=== PATIENT | male | born 1945 | race Caucasian/White ===

== ENCOUNTER → 2024-02-22 12:17 | Outpatient (REF) | payer MEDICARE, OTHER, SELFPAY ==
[2024-02-22 16:33] LABS: PSA, Total - Diagnostic 7.75 ng/ml (0.0-4.0)
== END ==
LOC: HWLAB 12:17
PROVIDERS: ATTENDING PHYSICIAN Specialist; FAMILY PHYSICIAN Family Medicine
DX: R97.20 Elevated prostate specific antigen [PSA] (principal)
CPT/HCPCS: 36415; 84153

== ENCOUNTER 2024-03-19 18:13 | Inpatient (IN) | payer MEDICARE, OTHER, SELFPAY ==
[2024-03-19 11:32] VITALS: BP 116/76
--- NOTE | 2024-03-19 11:41 | ED.GENMED ---
ED Provider Triage
<Dyan Silver PA-C - Last Filed: 03/19/24 11:42>
-
Patient seen by provider in Triage?: Seen in Triage
78-year-old male with a history of remote cholecystectomy presents for 5 days of pain with eating especially in the right upper quadrant, itchiness, yellowing of the skin. Outpatient family physician ordered belly labs and showed transaminitis. He
has not had a history of hepatitis. He does drink alcohol occasionally.
A medical screening examination has been initiated by a qualified medical provider. Based on the assessment performed at this time, it has been determined that an emergent medical condition may exist and the patient has been informed that further
medical evaluation and possible additional diagnostic testing may be needed.
HPI: This is a medical evaluation conducted in person to initiate diagnostic evaluation and provide initial therapeutics. Please see further documentation by the treating clinician.
GENERAL: Alert , in no apparent distress
ENT: No visible abnormalities
LUNGS: No acute respiratory distress
NEUROLOGICAL: Alert and oriented
SKIN: Skin intact. No visible changes.
MUSCULOSKELETAL: Moving extremities normally
PSYCH: Normal and appropriate interaction.
Will repeat labs as well as get a hepatitis panel and ultrasound
History of Present Illness
<Dyan Silver PA-C - Last Filed: 03/19/24 11:42>
General
Chief Complaint: Abnormal Lab Value
Time Seen by Provider: 03/19/24 14:14
<Margaux Ruiz PA-C - Last Filed: 03/19/24 19:11>
General
Source: patient
History of Present Illness
History of Present Illness:
78yoM with a history of hypertension and prior cholecystectomy presenting for evaluation of generalized weakness. Symptoms began about 5 to 6 days ago. He reports feeling very fatigued and nauseous. He reports upper abdominal pain after eating.
He has also noticed that his urine appears dark and he is having diffuse itchiness. No fevers. Patient was seen by his PCP 2 days ago for the same and was started on Cipro for presumed UTI. He was sent for outpatient blood work which showed
transaminitis and he was sent to the ED for evaluation. Patient drinks alcohol only on weekends. He had 1 beer a few days ago but denies any regular alcohol use. He has taken Tylenol twice in the past few days.
Past History
<Dyan Silver PA-C - Last Filed: 03/19/24 11:42>
Past History
ED Past Medical History: HTN and Other (migraines); Negative CAD
Social History
Tobacco: Non-smoker
Personal:
Living: with family
Employment: Retired
Phy Exam
<Margaux Ruiz PA-C - Last Filed: 03/19/24 19:11>
Physical Exam
Physical Exam:
Fatigued, non-toxic
General Physical Exam
General Presentation: no apparent distress
General Skin: warm and dry
General Mental: alert
ENT Exam
ENT Exam: normocephalic
Pulmonary Exam
Pulmonary Exam: no respiratory distress
Gastrointestinal Exam
Gastrointestinal Exam: non tender, soft and non distended
Neurological Exam
Neurological Exam: alert
[place] Coma Scale
Eye Opening: Spontaneous
Verbal Response: Oriented
Motor Response: Obeys Commands
GCS Total Score: 15
Skin Exam
Skin Exam: warm/dry and jaundice
Psychiatric Exam
Psychiatric Exam: normal mood/affect
Course
<Dyan Silver PA-C - Last Filed: 03/19/24 11:42>
Orders/Labs/Results
Orders:
Orders
03/19/24 11:38
US Abdomen Complete/Upper Urgent
Comment:
Reason For Exam: elevated liver enzymes
03/19/24 11:43
Complete Blood Count/With Diff Urgent
Comprehensive Metabolic Panel Urgent
Hepatitis A IgM Antibody Urgent
Hepatitis B Core Ab, IgM Urgent
Hepatitis B Surface Antibody Urgent
Hepatitis B Surface Antigen Urgent
Hepatitis C Antibody Urgent
LFT [[id number]-[id number]] Urgent
Lipase Urgent
Urinalysis Reflex To Culture Urgent
Date Specimen was Collected: 03/19/24
Time Specimen was Collected: 11:36
Urine Microscopic Reflex Cult Urgent
Urine Culture Urgent
RONALDO Source: U
Specimen Description:
Date Specimen was Collected: 03/19/24
Time Specimen was Collected: 11:36
03/19/24 14:23
CT Abd/pelvis W Iv Cont Urgent
Comment:
Reason For Exam: New onset jaundice
03/19/24 15:35
PTT Urgent
Prothrombin Time Urgent
03/19/24 16:39
GASTROINTESTINAL CONSULT Routine
Consulting Provider: Marian Rogers
Was physician already notified: Yes
03/19/24 16:58
HydrOXYZINE [Atarax] 25 mg PO NOW STA
03/19/24 17:35
Admit/Transfer Patient As Directed
Co-Sign Provider:
Level of Care: Inpatient admission
Assign to:: Medical/Surgical
Physician / Group: Pina Olmstead
Diagnosis: Jaundice, pancreatitis, moderate diffuse prominence of biliary ducts
Reason for Hospitalization: Jaundice, pancreatitis, moderate diffuse prominence of biliary ducts
Expected length of stay greater than two midnights?: Yes
ELOS- Estimated Length of Stay in days: 3
I certify the patient meets the requirements for IP care: Yes
PRN Pain Medication Management As Directed
May give lesser potent ordered pain med per pt: Yes
preference::
Protocol:: Medication orders for pain may be administered in a
manner that supports deferring to patient preference
when the pt is:
- Requesting an ordered lesser potent pain medication.
Least to most potent pain medications are defined
as: acetaminophen < NSAID < tramadol < opioids
(morphine, oxycodone, hydromorphone).
- Requesting a lesser dose of the same medication IF
ORDERED.
- Requesting a less intrusive route of administration
if both routes are prescribed by the provider (PO <
IV).
03/19/24 17:37
Code Status As Directed
Resuscitation Status: Do not resuscitate
Reached after discussion with pt or family/Healthcare POA: Yes
Decision communicated with: patient
03/19/24 17:38
DNR Bracelet Application ONCE
Abnormal Lab Results
03/19/24
11:43
RBC 4.68 L 10^6/uL
(4.70-6.10)
MCH 31.8 H pg
(27.0-31.0)
MPV 11.4 H fL
(7.4-10.4)
Absolute Lymphs (auto) 1.0 L 10^3/uL
(1.2-3.4)
Absolute Monos (auto) 0.7 H 10^3/uL
(0.1-0.6)
Lymphocytes % 17.2 L %
(20.5-51.1)
Monocytes % 11.5 H %
(1.7-9.3)
Carbon Dioxide 20 L mmol/L
(22-30)
Glucose 151 H mg/dl
(70-99)
Total Bilirubin 11.3 H mg/dl
(0.2-1.3)
Direct Bilirubin 9.6 H mg/dl
(0.0-0.4)
AST 351 H U/L
(17-59)
ALT 857 H* U/L
(0-50)
Alkaline Phosphatase 190 H U/L
(38-126)
Lipase 18 L U/L
(23-300)
Urine Ketones 1+ A
(Negative)
Urine Nitrite (Reflex) Positive A
(Negative)
Urine Bilirubin 3+ A
(Negative)
Urine Urobilinogen 3+ A
(Neg - 1+)
Leukocyte Esterase Rfl 1+ A
(Negative)
Urine Bacteria (Reflex) Moderate A
(Negative)
03/19/24 11:43
03/19/24 11:43
Vital Signs
Initial and Last Documented VS:
Initial Vital Signs
Temp Pulse Resp BP Pulse Ox
97.5 F 69 19 116/76 98
03/19/24 11:32 03/19/24 11:32 03/19/24 11:32 03/19/24 11:32 03/19/24 11:32
Last Documented Vital Signs
Temp Pulse Resp BP Pulse Ox
97.5 F 77 16 146/88 97
03/19/24 11:32 03/19/24 18:00 03/19/24 18:00 03/19/24 18:00 03/19/24 18:00
Geoffreylt;Margaux Ruiz PA-C - Last Filed: 03/19/24 19:11>
Orders/Labs/Results
Orders:
Orders
03/19/24 11:38
US Abdomen Complete/Upper Urgent
Comment:
Reason For Exam: elevated liver enzymes
03/19/24 11:43
Complete Blood Count/With Diff Urgent
Comprehensive Metabolic Panel Urgent
Hepatitis A IgM Antibody Urgent
Hepatitis B Core Ab, IgM Urgent
Hepatitis B Surface Antibody Urgent
Hepatitis B Surface Antigen Urgent
Hepatitis C Antibody Urgent
LFT [[id number]] Urgent
Lipase Urgent
Urinalysis Reflex To Culture Urgent
Date Specimen was Collected: 03/19/24
Time Specimen was Collected: 11:36
Urine Microscopic Reflex Cult Urgent
Urine Culture Urgent
RONALDO Source: U
Specimen Description:
Date Specimen was Collected: 03/19/24
Time Specimen was Collected: 11:36
03/19/24 14:23
CT Abd/pelvis W Iv Cont Urgent
Comment:
Reason For Exam: New onset jaundice
03/19/24 15:35
PTT Urgent
Prothrombin Time Urgent
03/19/24 16:39
GASTROINTESTINAL CONSULT Routine
Consulting Provider: Marian Rogers
Was physician already notified: Yes
03/19/24 16:58
HydrOXYZINE [Atarax] 25 mg PO NOW STA
03/19/24 17:35
Admit/Transfer Patient As Directed
Co-Sign Provider:
Level of Care: Inpatient admission
Assign to:: Medical/Surgical
Physician / Group: Pina Olmstead
Diagnosis: Jaundice, pancreatitis, moderate diffuse prominence of biliary ducts
Reason for Hospitalization: Jaundice, pancreatitis, moderate diffuse prominence of biliary ducts
Expected length of stay greater than two midnights?: Yes
ELOS- Estimated Length of Stay in days: 3
I certify the patient meets the requirements for IP care: Yes
PRN Pain Medication Management As Directed
May give lesser potent ordered pain med per pt: Yes
preference::
Protocol:: Medication orders for pain may be administered in a
manner that supports deferring to patient preference
when the pt is:
- Requesting an ordered lesser potent pain medication.
Least to most potent pain medications are defined
as: acetaminophen < NSAID < tramadol < opioids
(morphine, oxycodone, hydromorphone).
- Requesting a lesser dose of the same medication IF
ORDERED.
- Requesting a less intrusive route of administration
if both routes are prescribed by the provider (PO <
IV).
03/19/24 17:37
Code Status As Directed
Resuscitation Status: Do not resuscitate
Reached after discussion with pt or family/Healthcare POA: Yes
Decision communicated with: patient
03/19/24 17:38
DNR Bracelet Application ONCE
Abnormal Lab Results
03/19/24
11:43
RBC 4.68 L 10^6/uL
(4.70-6.10)
MCH 31.8 H pg
(27.0-31.0)
MPV 11.4 H fL
(7.4-10.4)
Absolute Lymphs (auto) 1.0 L 10^3/uL
(1.2-3.4)
Absolute Monos (auto) 0.7 H 10^3/uL
(0.1-0.6)
Lymphocytes % 17.2 L %
(20.5-51.1)
Monocytes % 11.5 H %
(1.7-9.3)
Carbon Dioxide 20 L mmol/L
(22-30)
Glucose 151 H mg/dl
(70-99)
Total Bilirubin 11.3 H mg/dl
(0.2-1.3)
Direct Bilirubin 9.6 H mg/dl
(0.0-0.4)
AST 351 H U/L
(17-59)
ALT 857 H* U/L
(0-50)
Alkaline Phosphatase 190 H U/L
(38-126)
Lipase 18 L U/L
(23-300)
Urine Ketones 1+ A
(Negative)
Urine Nitrite (Reflex) Positive A
(Negative)
Urine Bilirubin 3+ A
(Negative)
Urine Urobilinogen 3+ A
(Neg - 1+)
Leukocyte Esterase Rfl 1+ A
(Negative)
Urine Bacteria (Reflex) Moderate A
(Negative)
12/11/24 11:43
03/19/24 11:43
Vital Signs
Initial and Last Documented VS:
Initial Vital Signs
Temp Pulse Resp BP Pulse Ox
97.5 F 69 19 116/76 98
03/19/24 11:32 12 11:32 03/19/24 11:32 03/19/24 11:32 03/19/24 11:32
Last Documented Vital Signs
Temp Pulse Resp BP Pulse Ox
97.5 F 77 16 146/88 97
03/19/24 11:32 03/19/24 18:00 03/19/24 18:00 03/19/24 18:00 03/19/24 18:00
<Margaux Ruiz PA-C - Last Filed: 03/19/24 19:11>
MDM/Problems Addressed
Differential Diagnosis Includes:
78yoM here with postprandial abd pain, dark urine, itching, and generalized weakness x 5 days. Outpatient blood work showed transaminitis. VSS. He appears fatigued on exam although is non-toxic. Jaundice noted. Abdominal exam is benign. Differential
diagnosis includes but is not limited to: hepatitis, malignancy, choledocholithiasis, pancreatitis
Initial ED plan: Abdominal labs and hepatitis panel obtained in triage. Total bilirubin is 11, AST 351, ALT 857. Lipase WNL. Abdominal ultrasound shows possible intrahepatic biliary ductal dilatation. Coags ordered to check synthetic function of
liver. CT abdomen also added.
<Margaux Ruiz PA-C - Last Filed: 03/19/24 19:11>
*Critical Care Note
Total Time (30-74mins, 75-104mins- exclusive of procedures): Not Applicable
<Margaux Ruiz PA-C - Last Filed: 03/19/24 19:11>
Update Note
Update Note:
CT abdomen shows possible mild pancreatitis although lipase is normal. There is also moderate diffuse prominence of the intra- and extra-hepatic biliary ducts, cannot exclude small pancreatic lesion. Will admit for further evaluation and management.
ED Attending Note
<Dyan Silver PA-C - Last Filed: 03/19/24 11:42>
-
Portions of this chart may have been created with voice recognition software.� Occasional wrong word or��sound alike� substitutions may have occurred due to the inherent limitations of voice recognition software.
Discharge Plan
Departure
Patient Disposition: Admit
Date of Disposition: 03/19/24
Time of Disposition: 16:34
Presentation/result/management discussed w/ accepting MD/DO: Hospitalist
Discharge Problem:
Jaundice
Interventions
Interventions:
*Risk Screen - Suicide Last Done: 03/19/24 11:32
*General Assessment Last Done: 03/19/24 11:32
*Neglect/Abuse Screening Last Done: 03/19/24 11:32
ED- Fall Risk Assessment Last Done: 03/19/24 15:17
*ED COVID-19 Vaccine History Last Done: 03/19/24 15:18
GQ-Kohcyz-Itdfyyxzfg Assessment Last Done: 03/19/24 15:17
[2024-03-19 11:58] LABS: % Basophils 0.9 % (0-2); % Eosinophils 5.3 % (0-6); % Immature Granulocytes 0.3 % (0-0.5); % Lymphocytes 17.2 % (20.5-51.1); % Monocytes 11.5 % (1.7-9.3); % Neutrophils 64.8 % (42.2-75.2); Absolute Basophils 0.1 10^3/uL (0-0.2); Absolute Eosinophils 0.3 10^3/uL (0-0.7); Absolute Monocytes 0.7 10^3/uL (0.1-0.6); Absolute Neutrophils 3.8 10^3/uL (1.4-6.5); Hematocrit 43.3 % (39.0-52.0); Hemoglobin 14.9 g/dL (13.0-18.0); Mean Corp Hgb Conc. 34.4 g/dL (33.0-37.0); Mean Corpuscular Hgb 31.8 pg (27.0-31.0); Mean Corpuscular Volume 92.5 fL (80.0-94.0); Mean Platelet Volume 11.4 fL (7.4-10.4); Nucleated Red Blood Cells % 0 % (-); Platelet Count 211 10^3/uL (130-400); Red Blood Cell Count 4.68 10^6/uL (4.70-6.10); Red Cell Dist. Width 14.2 % (11.5-14.5); White Blood Cell Count 5.8 10^3/uL (4.8-10.8)
[2024-03-19 12:05] LABS: Urine Albumin Trace (Neg - Trace); Urine Bilirubin 3+ (Negative); Urine Character Clear (Clear); Urine Color Yellow; Urine Glucose Negative (Negative); Urine Ketone 1+ (Negative); Urine Leukocyte 1+ (Negative); Urine Nitrite Positive (Negative); Urine Occult Blood Negative (Negative); Urine Urobilinogen 3+ (Neg - 1+)
[2024-03-19 12:36] LABS: Alkaline Phosphatase 190 U/L (38-126); Blood Urea Nitrogen 14 mg/dl (9-20); Calcium 9.8 mg/dl (8.4-10.2); Carbon Dioxide 20 mmol/L (22-30); Chloride 102 mmol/L (98-107); Glucose 151 mg/dl (70-99); Potassium 4.7 mmol/L (3.5-5.1); Sodium 137 mmol/L (135-145); eGFR > 60.00
[2024-03-19 12:37] LABS: Albumin 4.6 g/dl (3.5-5.0); Total Protein 7.5 g/dl (6.3-8.2)
[2024-03-19 12:40] LABS: Total Bilirubin 11.3 mg/dl (0.2-1.3)
[2024-03-19 12:44] LABS: AST (SGOT) 351 U/L (17-59); Direct Bilirubin 9.6 mg/dl (0.0-0.4); Lipase 18 U/L (23-300)
[2024-03-19 12:57] LABS: ALT (SGPT) 857 U/L (0-50)
[2024-03-19 13:01] LABS: Urine Mucus Few
[2024-03-19 13:05] LABS: Urine Bacteria Moderate (Negative); Urine Red Blood Cell 0-2 /HPF (0-2)
[2024-03-19 13:06] LABS: Urine Squamous Cell 0-2 /LPF (Few)
[2024-03-19 14:00] VITALS: BP 155/79
[2024-03-19 16:22] LABS: INR 0.91; PT 12.8 Sec (11.4-14.6)
[2024-03-19 16:23] LABS: APTT 28.7 Sec (23.4-35.0)
--- NOTE | 2024-03-19 16:37 | HPS.HSE ---
Addendum entered and electronically signed by Pina Olmstead MD 03/20/24 07:27:
I saw and examined the patient.
The FURNACE COOLER's note was reviewed and I agree with the note.
Comment:
Check MRCP and GI CS for jaundice and mild abd pain. Trend LFT
Original Note:
Family Physician
-
Family Physician: Arnie Guthrie
Chief Complaint
-
Abdominal discomfort/abnormal labs
History of Present Illness
Sunita is a 78-year-old male with past medical history significant for hypertension, BPH and GERD who presented to [facility] for evaluation of abnormal labs and abdominal discomfort postprandial. Patient reports since last Sunday (4-5
days) after eating he has abdominal discomfort, described as generalized and not a pin point location. Takes several hours to subside and returns immediately after eating or drinking. After several days of discomfort patient made appointment with
primary and was seen on Sunday and sent for labs, follow up call today they reported elevated LFTs and to report to ED for workup. Patient states that he has increased fatigue and dark urine associated with the postprandial discomfort. Patient
denies any fever, chills, chest pain, cough, shortness of breath, nausea, vomiting, constipation, diarrhea or urinary symptoms.
Medical History
Past Medical History
Past Medical History: Reports Other
Additional Past Medical History:
hypertension
BPH
GERD
Past Surgical History: Reports Other
Additional Past Surgical History:
cholecystectomy
Right total shoulder
Right total knee
Social History
Tobacco: Former Smoker (quit 50 years ago)
Alcohol: Occasional (wine on the weekends)
Drug: None
Living: Alone
Employment: Retired
Family History
Family History: Not pertinent
Allergies / Home Medications
Allergies reflects when Allergies were last updated in [facility].
Home Medications with original date entered in [facility]
Allergy/Medication List:
Allergies
Allergy/AdvReac Type Severity Reaction Status Date / Time
No Known Allergies Allergy Verified 03/19/24 15:19
Home Medications
atenolol 25 mg tablet 25 mg PO DAILY 11/27/10
tamsulosin 0.4 mg capsule (Flomax) 0.4 mg PO DAILY 03/15/21
vit C 250 mg-vit E 90 mg-zinc 40 mg-copper 1 [id number] capsule (PreserVision AREDS-2) 1 ea PO BID 03/15/21
amlodipine 5 mg tablet 5 mg PO DAILY ##0 03/22/21
acetaminophen 500 mg tablet 1,000 mg PO Q6HPRN PRN mild pain 03/19/24
docusate sodium 100 mg capsule 100 mg PO DAILY 03/19/24
magnesium oxide 400 mg PO DAILY 03/19/24
ondansetron HCl 8 mg tablet 8 mg PO Q8HPRN PRN nausea 03/19/24
therapeutic multivitamin 1 tab PO DAILY 03/19/24
turmeric 400 mg capsule 1,600 mg PO DAILY 03/19/24
Review of Systems
-
History Source: Patient
Constitutional: Reports Fatigue
EENT: Reports No Symptoms
Respiratory: Reports No Symptoms
Cardiac: Reports No Symptoms
Abdomen/GI: Reports Abdominal Pain (postprandial)
: Reports No Symptoms
Musculoskeletal: Reports No Symptoms
Skin: Reports Itching
Neurological: Reports No Symptoms
Endocrine: Reports No Symptoms
Hematologic/Lymphatic: Reports No Symptoms
Psych: Reports No Symptoms
Physical Exam
Vital Signs
Vital Signs
Temp Pulse Resp BP Pulse Ox
97.5 F 67 15 155/79 98
03/19/24 11:32 03/19/24 14:00 03/19/24 14:00 03/19/24 14:00 03/19/24 14:00
Physical Exam
General: Well Developed, Well Nourished, No Apparent Distress, Comfortable and Conversant
HEENT: NormoCephalic, Moist mucous membranes, Atraumatic, Nose Appears Normal and Ears Appear Normal
Respiratory: Clear and Non Labored Respirations
Cardiac: S1/S2 and Regular Rhythm; No Murmur, Rub or Gallop
Breast: Deferred by me
GI: Soft, Non Tender, Non Distended and Normal Bowel Sounds; No Organomegaly
Rectal: Deferred by Provider
Genito-urinary: Deferred by me
Musculoskeletal: No Clubbing, No Cyanosis and No Edema
Skin: Warm, Jaundice and IV/Catheter Site
Neuro: Awake, Alert, AO x 3 and Nonfocal/grossly intact
Hematologic/Lymphatic: No Lymphadenopathy
Psych: Calm and Intact Judgment/Insight
Laboratory Results
-
03/19/24 11:43
03/19/24 11:43
Laboratory Results
PT 12.8 Sec (11.4-14.6) 03/19/24 15:35
INR 0.91 03/19/24 15:35
APTT 28.7 Sec (23.4-35.0) 03/19/24 15:35
Total Bilirubin 11.3 mg/dl (0.2-1.3) H 03/19/24 11:43
AST 351 U/L (17-59) H 03/19/24 11:43
ALT 857 U/L (0-50) H* 03/19/24 11:43
Alkaline Phosphatase 190 U/L (38-126) H 03/19/24 11:43
Lipase 18 U/L (23-300) L 03/19/24 11:43
Data Reviewed
-
CT Scan: Report Reviewed by me (Abd: 1. No portal vein thrombus identified. 2. Suspect mild acute interstitial edematous pancreatitis in the appropriate clinical context. Recommend correlation with lipase levels. 3. Moderate diffuse prominence of
the intra- and extra-hepatic biliary ducts, possibly within normal limits given patie)
Ultrasound: Report Reviewed by me (Abd: Dilated tubular branching structures within the liver. As described above, concern is raised for intrahepatic bile duct dilation as well as possible nonocclusive portal vein thrombosis. The ultrasound, this is
a somewhat confusing examination. Further evaluation is advised, probably best to beg)
Lab Data: Labs Reviewed by me (Total Bili 11.3, Direct Bili 9.6, AST 351, ALT 857, Alk Phos 190, Lipase 18)
Impression/Plan
-
IMPRESSION/PLAN:
#Pancreatitis vs. Hepatitis
#small pancreatic or ampullary lesion
AST 351, ALT 857, Lipase 18
CT: 1. No portal vein thrombus identified.
2. Suspect mild acute interstitial edematous pancreatitis in the appropriate clinical context. Recommend correlation with lipase levels.
3. Moderate diffuse prominence of the intra- and extra-hepatic biliary ducts, possibly within normal limits given patient age and postcholecystectomy state. However, cannot rule out small pancreatic or ampullary lesion.
Consider nonemergent workup with dedicated MRI/MRCP abdomen without and with gadolinium contrast when the patient is able.
US: Status post cholecystectomy.
Dilated tubular branching structures within the liver. As described above, concern is raised for intrahepatic bile duct dilation as well as possible nonocclusive portal vein thrombosis. The ultrasound, this is a somewhat
confusing examination. Further evaluation is advised, probably best to begin with a dedicated CT of the abdomen and pelvis.
The pancreas is unable to be visualized. The common bile duct is unable to be visualized. In the taylor hepatis, there appears to be dilation of the common hepatic duct measuring 9 mm.
Liver echogenicity is diffusely increased, suggesting fatty infiltration and/or hepatocellular disease. Simple cyst within the left lobe liver.
Upper abdominal IVC is unable to be confidently visualize. Upper abdominal aorta is unable to be visualized.
- Admit to med/surg
- Consult GI
- Hepatitis panel pending
- MRCP
- IVF
#hypertension
- continue amlodipine and atenolol
#BPH
- continue tamsulosin
#GERD
Code Status: DNR
DVT Prophylaxis: SCDs
[2024-03-19] MEDS: ATARAX 25 MG PO (17:01)
[2024-03-19 18:00] VITALS: BP 146/88
[2024-03-19 19:52] VITALS: BP 166/88; BMI 28.2
--- NOTE | 2024-03-19 19:52 | PTCARENOTE ---
pt admitted from ED to room 1143-01. pt ambulated from stretcher to bed without difficulty. pt oriented to room and unit. pt denies nausea or pain at this time. son at bedside. updated on plan of care.
[2024-03-19] MEDS: LR 1000 IV (20:21)
[2024-03-19] MEDS: MELATONIN 5 MG PO (22:20)
[2024-03-19 23:10] VITALS: BP 135/79
[2024-03-20] VITALS (7 sets, daily range): BP systolic 126–162; BP diastolic 58–85
--- NOTE | 2024-03-20 06:48 | CON.GI ---
Addendum entered and electronically signed by Marian Rogers MD 03/20/24 13:16:
I saw and examined the patient.
The [employer] MACHINE OPERATOR's note was reviewed and I agree with the note.
Comment: This is a pleasant 78-year-old male who presented with symptoms of dyspepsia since Thanksgiving with decreased appetite, postprandial pain with nausea and recent outpatient labs showed jaundice and was recommended to come into the ER.
Workup so far has revealed obstructive jaundice and imaging has shown ductal dilatation concerning for pancreatic neoplasm. I did discuss the results with patient and also his daughter who is a physician in [place] over the telephone. CT initially
showed possible pancreatitis but lipase was normal MRI showed no evidence of pancreatitis. He currently denies any abdominal pain
Assessment and plan obstructive jaundice with evidence of ductal dilatation possible pancreatic neoplasm and possible small hepatic lesions concerning for mets and portacaval lymph nodes also has hepatic cysts. Scheduled for EUS with ERCP with
[facility] today and oncology consulted also. Will also get a CA 19-9 level
03/20/24 MRI with MRCP
IMPRESSION: Status post cholecystectomy.
There is diffuse severe intrahepatic bile duct dilation. Abrupt cut off of the superior common bile duct at the junction of a dilated confluence of cystic duct remnant and common hepatic duct. Dilated pancreatic duct. Findings are highly concerning
for pancreatic head carcinoma. Stricture from pancreatitis could be considered but felt to be significantly less likely.
There are multiple hepatic cysts identified. There are additional hepatic lesions, best seen on diffusion-weighted images, and these small lesions demonstrate enhancement with contrast. These are suspicious for hepatic metastatic disease.
There is mass effect upon the inferior aspect of the main portal vein by the mass within the pancreatic head, but no evidence for encasement. There is no evidence for portal vein thrombosis.
There are lymph nodes in the portal caval space, not enlarged by size criteria, but could still represent neoplastic lymphadenopathy.
Original Note:
Consultation
-
Date/Time Consultation Requested: 03/19/24 1640
Date/Time Consultation Performed: 03/20/24 0800
Requesting Provider: Pina Olmstead MD
Performing Provider: KRUNAL Aguilar, Marian Rogers MD
Reason for Consultation: post prandial pain/jaundice
Medical History
Chief Complaint / HPI
History of Present Illness:
Pt is a 78yo with hx HTN, prior qian, hx prior noted septated hepatic cyst, fatty liver, colon polyps, migraines with onset of RUQ pain with itchiness and change in skin color. On admission he is noted with bili 11.3, D bili 9.6, AST 351, ALT
857, alk phos 190 and lipase of 18. Imaging with US with dilated tubular branching structure within liver with concern for intrahepatic bile duct dilation as well as PVT with nonvisualization fo pancreas and CBD but taylor hepatis dilation of common
hepatic duct and fatty liver with limitation CT was recommended. Ct completed with non PVT but mild acute edematous pancreatitis with diffuse intra and extra hepatic biliary dilatation with small pancreatic or ampullary lesions not excluded with
MRI/MRCP pending.
In review with patient noted with onset of GERD around . He then noted post prandial pain and nausea with inability to eat for last week with onset of jaundice and few lb wt loss. He also admits to dark urine. He otherwise denies
odynophagia, vomiting, diarrhea, constipation, or rectal bleeding. No hx EGD. Colonoscopy 2017 with TA and HP polyps. + ETOH use 1 bottle wine 3 days per week. Some recent increase as and he did share bottle of wine with her in
past. No new Medication. No hx liver issues or hepatitis in past. No Anticoagulation use.
Past Medical History
Past Medical History: GERD (distant hx in past with recent episode prior to admission), HTN and Other (TA polyps, migraines, diverticulosis, sepatated hepatic cyst, fatty liver BPH)
Past Surgical History: Cholecystectomy and Orthopedic (shoulder surgery, knee surgery)
Social History
Tobacco: Former Smoker (quit 50 years ago)
Personal:
Living: Alone
Employment: Retired
Family History
Family History: Other (no family hx liver, pancreatic issues )
Allergies / Home Medications
Allergy/AdvReac Type Severity Reaction Status Date / Time
No Known Allergies Allergy Verified 03/19/24 15:19
�Medication �Instructions �Recorded
atenolol 25 mg tablet 25 mg PO DAILY 11/27/10
tamsulosin 0.4 mg capsule (Flomax) 0.4 mg PO DAILY 03/15/21
vit C 250 mg-vit E 90 mg-zinc 40 1 ea PO BID 03/15/21
mg-copper 1 [id number]
capsule (PreserVision AREDS-2)
amlodipine 5 mg tablet 5 mg PO DAILY ##0 03/22/21
acetaminophen 500 mg tablet 1,000 mg PO Q6HPRN PRN mild pain 03/19/24
docusate sodium 100 mg capsule 100 mg PO DAILY 03/19/24
magnesium oxide 400 mg PO DAILY 03/19/24
ondansetron HCl 8 mg tablet 8 mg PO Q8HPRN PRN nausea 03/19/24
therapeutic multivitamin 1 tab PO DAILY 03/19/24
turmeric 400 mg capsule 1,600 mg PO DAILY 03/19/24
Review of Systems
-
History Source: Patient
Constitutional: Reports Weight Loss (few lbs over last week)
EENT: Reports No Symptoms
Respiratory: Reports No Symptoms
Cardiac: Reports No Symptoms
Abdomen/GI: Reports Abdominal Pain and Nausea
: Reports Dark Urine
Musculoskeletal: Reports No Symptoms
Skin: Reports No Symptoms
Neurological: Reports Weakness
Endocrine: Reports No Symptoms
Hematologic/Lymphatic: Reports No Symptoms
Vital Signs
Temp Pulse Resp BP Pulse Ox
98.3 F 65 18 135/79 94
03/19/24 23:10 03/19/24 23:10 03/19/24 23:10 03/19/24 23:10 03/19/24 23:10
Physical Exam
Exam
General: Well Developed, Well Nourished and No Apparent Distress
HEENT: Other (jaundice )
Respiratory: Clear
Cardiac: Regular Rhythm
GI: Soft, Non Distended and Tender (minimal epigastric )
Skin: Warm and Dry
Neuro: Awake, Alert and AO x 3
Psych: Calm
Results
WBC 5.8 10^3/uL (4.8-10.8) 03/19/24 11:43
Hgb 14.9 g/dL (13.0-18.0) 03/19/24 11:43
Hct 43.3 % (39.0-52.0) 03/19/24 11:43
MCV 92.5 fL (80.0-94.0) 03/19/24 11:43
Plt Count 211 10^3/uL (130-400) 03/19/24 11:43
Absolute Neuts (auto) 3.8 10^3/uL (1.4-6.5) 03/19/24 11:43
PT 12.8 Sec (11.4-14.6) 03/19/24 15:35
INR 0.91 03/19/24 15:35
APTT 28.7 Sec (23.4-35.0) 03/19/24 15:35
Sodium 137 mmol/L (135-145) 03/19/24 11:43
Potassium 4.7 mmol/L (3.5-5.1) 03/19/24 11:43
Chloride 102 mmol/L (98-107) 03/19/24 11:43
Carbon Dioxide 20 mmol/L (22-30) L 03/19/24 11:43
BUN 14 mg/dl (9-20) 03/19/24 11:43
Creatinine 1.0 mg/dL (0.7-1.3) 03/19/24 11:43
Calcium 9.8 mg/dl (8.4-10.2) 03/19/24 11:43
Total Bilirubin 11.3 mg/dl (0.2-1.3) H 03/19/24 11:43
AST 351 U/L (17-59) H 03/19/24 11:43
ALT 857 U/L (0-50) H* 03/19/24 11:43
Alkaline Phosphatase 190 U/L (38-126) H 03/19/24 11:43
Lipase 18 U/L (23-300) L 03/19/24 11:43
Diagnostic Image Results:
03/19/24 US abdomen
Status post cholecystectomy.
Dilated tubular branching structures within the liver. As described above, concern is raised for intrahepatic bile duct dilation as well as possible nonocclusive portal vein thrombosis. The ultrasound, this is a somewhat confusing examination.
Further evaluation is advised, probably best to begin with a dedicated CT of the abdomen and pelvis.
The pancreas is unable to be visualized. The common bile duct is unable to be visualized. In the taylor hepatis, there appears to be dilation of the common hepatic duct measuring 9 mm.
Liver echogenicity is diffusely increased, suggesting fatty infiltration and/or hepatocellular disease. Simple cyst within the left lobe liver.
Upper abdominal IVC is unable to be confidently visualize. Upper abdominal aorta is unable to be visualized.
03/19/24 CT With IV contrast
1. No portal vein thrombus identified.
2. Suspect mild acute interstitial edematous pancreatitis in the appropriate clinical context. Recommend correlation with lipase levels.
3. Moderate diffuse prominence of the intra- and extra-hepatic biliary ducts, possibly within normal limits given patient age and postcholecystectomy state. However, cannot rule out small pancreatic or ampullary lesion. Consider nonemergent workup
with dedicated MRI/MRCP abdomen without and with gadolinium contrast when the patient is able.
Prior GI Procedures:
EGD: none
Colonoscopy:
2017 [place]-- good prep to TI
- The examined portion of the ileum was normal.
- Diverticulosis in the sigmoid colon.
- Diverticulosis in the descending colon, in the
transverse colon and in the distal ascending colon.
- One 6 mm polyp in the proximal ascending colon,
removed with a cold snare. Resected and retrieved.
- One 5 mm polyp at the hepatic flexure, removed with a
cold snare. Resected and retrieved.
- Four 3 to 4 mm polyps at 20 cm proximal to the anus,
removed with a jumbo cold forceps. Resected and
retrieved.
- Non-bleeding external hemorrhoids.
bx TA - ascending, HP no high grade dysplasia, 20cm bx HP polyp
Assessment / Plan
-
Pt is a 78yo with hx HTN, prior qian, colon polyps, migraines with onset of RUQ pain with itchiness and change in skin color. On admission he is noted with bili 11.3, D bili 9.6, AST 351, ALT 857, alk phos 190 and lipase of 18. Imaging with US
with dilated tubular branching structure within liver with concern for intrahepatic bile duct dilation as well as PVT with nonvisualization fo pancreas and CBD but taylor hepatis dilation of common hepatic duct and fatty liver with limitation CT was
recommended. Ct completed with non PVT but mild acute edematous pancreatitis with diffuse intra and extra hepatic biliary dilatation with small pancreatic or ampullary lesions not excluded with MRI/MRCP pending. + ETOH use 1 bottle wine 3 days per
week. Some recent increase as and he did share bottle of wine with her in past. No new Medication. No hx liver issues or hepatitis in past. No Anticoagulation use.
-RUQ pain
-diffuse intra and extra hepatic biliary dilatation with concern for small pancreatic or ampullary lesion not excluded
-mild acute edematous pancreatitis with normal lipase
-possible PVT not noted on follow up CT
-marked elevated LFT's
-hx prior qian
-prior note septated hepatic cyst
-fatty liver
-ETOH use
other med problems:
-hx colon polyps
-migraines
-BPH
-shoulder/knee surgery
PLAN:
etiology of symptoms related to pancreatitis, panc/ampullary mass, hepatitis with marked elevated LFT's vs other
agree with MRI/MRCP
NPO
pending MRI review may need EUS/ERCP vs further liver work up
hepatitis panel pending
cont IVF
trend labs
ETOH abstinence
-
-
Thank you for consultation and allowing me to participate in the patient's care. Please call the stereo equipment salesperson GI physician during the after hours with any questions or concerns.
[2024-03-20 07:35] LABS: Hematocrit 41.3 % (39.0-52.0); Hemoglobin 14.4 g/dL (13.0-18.0); Mean Corp Hgb Conc. 34.9 g/dL (33.0-37.0); Mean Corpuscular Hgb 32.1 pg (27.0-31.0); Mean Platelet Volume 11.8 fL (7.4-10.4); Platelet Count 220 10^3/uL (130-400); Red Blood Cell Count 4.49 10^6/uL (4.70-6.10); Red Cell Dist. Width 14.3 % (11.5-14.5); White Blood Cell Count 6.5 10^3/uL (4.8-10.8)
[2024-03-20 08:15] LABS: ALT (SGPT) 675 U/L (0-50); AST (SGOT) 256 U/L (17-59); Albumin 4.1 g/dl (3.5-5.0); Alkaline Phosphatase 176 U/L (38-126); Blood Urea Nitrogen 13 mg/dl (9-20); Calcium 9.4 mg/dl (8.4-10.2); Carbon Dioxide 20 mmol/L (22-30); Chloride 104 mmol/L (98-107); Estimated Creatinine Clearance 82 ml/min; Glucose 113 mg/dl (70-99); Potassium 4.5 mmol/L (3.5-5.1); Sodium 138 mmol/L (135-145); Total Bilirubin 11.8 mg/dl (0.2-1.3); eGFR > 60.00
[2024-03-20] MEDS: FLOMAX 0.4 MG PO (08:21)
[2024-03-20] MEDS: NORVASC 5 MG PO (08:21)
[2024-03-20] MEDS: COLACE 100 MG PO (08:21)
[2024-03-20] MEDS: TENORMIN 25 MG PO (08:21)
[2024-03-20] MEDS: LR 1000 IV (08:27)
--- NOTE | 2024-03-20 12:03 | W.PN.HOSP.TC ---
Today's Communication/Plan
-
see A/P
Assessment / Plan
Assessment / Plan
HPI: 78-year-old male with past medical history significant for hypertension, BPH and GERD; who presented to [facility] for evaluation of abnormal labs and abdominal discomfort postprandial. 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
discomfort after food, described as generalized pain. After several days of discomfort, patient made appointment with primary and was sent for labs. He was asked to come to the ED for work up for elevated LFTs.
Patient also c/o increased fatigue and dark urine.
In the ED he was noted to be jaundiced.
MRCP:
Status post cholecystectomy.
There is diffuse severe intrahepatic bile duct dilation. Abrupt cut off of the superior common bile duct at the junction of a dilated confluence of cystic duct remnant and common hepatic duct. Dilated pancreatic duct. Findings are highly concerning
for pancreatic head carcinoma. Stricture from pancreatitis could be considered but felt to be significantly less likely.
There are multiple hepatic cysts identified. There are additional hepatic lesions, best seen on diffusion-weighted images, and these small lesions demonstrate enhancement with contrast. These are suspicious for hepatic metastatic disease.
There is mass effect upon the inferior aspect of the main portal vein by the mass within the pancreatic head, but no evidence for encasement. There is no evidence for portal vein thrombosis.
There are lymph nodes in the portal caval space, not enlarged by size criteria, but could still represent neoplastic lymphadenopathy.
A/P:
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
# suspicious for hepatic metastatic disease.
CT AP and MRCP report (above) noted
For EUS with ERCP with Dr. Bush today
Cont to trend LFT
Hold tylenol for now
GI on board
Onc CS
Follow CA 19-9 level
# hypertension
continue amlodipine and atenolol with hold parameter
# BPH
continue tamsulosin
# GERD
Code Status: DNR
DVT Prophylaxis: SCDs
DW GI
Anticipated Discharge: 24 - 48 hours
Subjective/Interval History
-
Date of Service: March 20, 2024
Objective Data
-
Labs:
Laboratory Results
03/20/24
06:38
WBC 6.5
Hgb 14.4
Hct 41.3
Plt Count 220
Sodium 138
Potassium 4.5
Chloride 104
Carbon Dioxide 20 L
BUN 13
Creatinine 0.9
Glucose 113 H
Calcium 9.4
Total Bilirubin 11.8 H
AST 256 H
ALT 675 H*
Alkaline Phosphatase 176 H
Vital Signs:
Vital Signs
Temp Pulse Resp BP Pulse Ox
36.7 C 63 14 131/71 97
03/20/24 07:00 03/20/24 07:00 03/20/24 07:00 03/20/24 07:00 03/20/24 07:00
I&O
03/19/24 03/20/24 03/21/24
06:59 06:59 06:59
Intake Total 960 / 960 960 / 960
Balance 960 / 960 960 / 960
Review of Systems
-
All other systems: Reviewed and negative
Physical Exam
-
General: Well Developed, Well Nourished, No Apparent Distress, Comfortable and Conversant; Negative Respiratory Distress
HEENT: Normocephalic, Atraumatic, Nose Appears Normal and Ears Appear Normal; Negative Oxygen
Respiratory: Clear to Auscultation and Non Labored Respirations; Negative Accessory Resp Muscle Use
Cardiac: Regular Rhythm and S1/S2
GI: Soft, Nontender, Nondistended and Normal Bowel Sounds
Skin: Warm and Dry
Neuro: Awake, Alert, Oriented, AO x 3 and Nonfocal/Grossly Intact
Psych: Calm and Intact Judgement/Insight
Data Reviewed
-
CT Scan: Report Reviewed by me
MRI: Report Reviewed by me and Discussed with Patient
Labs: Labs Reviewed by me
--- NOTE | 2024-03-20 12:34 | CM ---
Patient seen bedside.
IA completed.
Patient lives alone, last year.
Patient independent prior to admission.
No assistive devices, no hx VN or skilled rehab.
Patient drove to the hospital.
If he cannot drive home, son will transport.
Patient denies food or housing insecurities.
PCP: Dr Guthrie
Pharmacy: [facility]
Plan: home no needs anticipated.
[2024-03-20 19:43] LABS: Hepatitis B Surface Antigen Negative (Negative)
[2024-03-20 20:00] LABS: Hepatitis B Surface Antibody Negative; Hepatitis C Antibody Negative (Negative)
[2024-03-21] MEDS: LR IV (03:35)
--- NOTE | 2024-03-21 05:53 | W.PN.GI.CBS2 ---
Today's Communication / Plan
-
Advance diet as tolerated after recent EUS/ERCP. Pending CT Angio Abd/pelvis to better assess vasculature and portal vein to assess surgical candidacy. Recommend Oncology, surgical-oncology and palliative care consults this admission. Rest of care
as outlined below.
Assessment / Plan
-
#Pancreatic Head Mass
#Obstructive Jaundice
Mr. Robertson is a pleasant 78-year-old male who presented with symptoms of dyspepsia since gi with decreased appetite, postprandial pain with nausea and recent outpatient labs showed jaundice and was recommended to come into the ER. Workup
so far has revealed obstructive jaundice and imaging has shown ductal dilatation concerning for pancreatic neoplasm. CT initially showed possible pancreatitis but lipase was normal MRI showed no evidence of pancreatitis. Recent EUS/ERCP 03/20/24
revealing pancreatic head mass s/p FNA and resulting in malignant biliary obstruction s/p metal stent as below however with migration into proximal biliary tree and unable to be retrieved.
MRI/MRCP 03/20/24: There is diffuse severe intrahepatic bile duct dilation. Abrupt cut off of the superior common bile duct at the junction of a dilated confluence of cystic duct remnant and common hepatic duct. Dilated pancreatic duct. Findings are
highly concerning for pancreatic head carcinoma. Stricture from pancreatitis could be considered but felt to be significantly less likely. There are multiple hepatic cysts identified. There are additional hepatic lesions, best seen on
diffusion-weighted images, and these small lesions demonstrate enhancement with contrast. These are suspicious for hepatic metastatic disease. There is mass effect upon the inferior aspect of the main portal vein by the mass within the pancreatic
head, but no evidence for encasement. There is no evidence for portal vein thrombosis. There are lymph nodes in the portal caval space, not enlarged by size criteria, but could still represent neoplastic lymphadenopathy. Status post cholecystectomy.
S/p EUS/ERCP 03/20/24: Mass identified in the pancreatic head (staged T1/2 NxMx) by EUS s/p FNA, dilation of the CBD up to 18 mm, severe biliary stricture within the lower third of the CBD with proximal dilation, s/p biliary sphincterotomy with
placement of a 10 mm by 4 cm metal stent in the CBD with proximal migration into the proximal bile duct (attempts of retrieval not successful), s/p placement of one 10 Fr x 5 cm plastic stent within the LHD, no evidence of significant pathology
within the left hepatic lobe of the liver
Recommendations:
- Advanced diet to regular diet as tolerated
- Trend serial LFTs and T Bili q daily, f/u AM labs
- Await FNA results from recent EUS of HOP mass
- Ordered CTA Abd/pelvis WWO contrast as per surgical oncology to further assess vasculature/portal vein if patient is a surgical candidate
- Pending imaging, will need to further determine if candidate for Whipple surgery (given previous c/f liver lesions as well seen on recent MRI/MRCP) versus Choledochostomy with jejunostomy for surgical stent removal
- Recommend Oncology, Surgical-onc, and Palliative Care consults (as requested by both patient/daughter) this admission
- Pain control and IV-antiemetics PRN
- Rest of care per primary team
Discussed with primary internal medicine team this AM. GI will continue to follow.
Subjective
Subjective
Date of Service: March 21, 2024
- S/p EUS/ERCP 03/20/24: Mass identified in the pancreatic head (staged T1/2 NxMx) by EUS s/p FNA, dilation of the CBD up to 18 mm, severe biliary stricture within the lower third of the CBD with proximal dilation, s/p biliary sphincterotomy with
placement of a 10 mm by 4 cm metal stent in the CBD with proximal migration into the proximal bile duct (attempts of retrieval not successful), s/p placement of one 10 Fr x 5 cm plastic stent within the LHD, no evidence of significant pathology
within the left hepatic lobe of the liver
- Otherwise, no acute events overnight. Repeat LFTs this AM pending
Feeling well this morning. Denies any nausea/vomiting, epigastric discomfort or abdominal pain. Tolerated CLD without difficulty yesterday evening. Discussed recent findings of EUS/ERCP again this AM with patient.
Objective
Data Reviewed
Laboratory Data:
Laboratory Results
PT 12.8 Sec (11.4-14.6) 03/19/24 15:35
INR 0.91 03/19/24 15:35
APTT 28.7 Sec (23.4-35.0) 03/19/24 15:35
Total Bilirubin 11.8 mg/dl (0.2-1.3) H 03/20/24 06:38
AST 256 U/L (17-59) H 03/20/24 06:38
ALT 675 U/L (0-50) H* 03/20/24 06:38
Alkaline Phosphatase 176 U/L (38-126) H 03/20/24 06:38
Lipase 18 U/L (23-300) L 03/19/24 11:43
Vital Signs and I&O:
Vital Signs
Temp Pulse Resp BP Pulse Ox
97.6 F 66 16 154/58 97
03/20/24 23:33 03/20/24 23:33 03/20/24 23:33 03/20/24 23:33 03/20/24 23:33
I&O
03/19/24 03/20/24 03/21/24
06:59 06:59 06:59
Intake Total 960 / 960 1750 / 1750
Balance 960 / 960 1750 / 1750
Physical Exam
Physical Exam
HEENT: Other (Scleral icterus)
Cardiology: Normal Sinus Rhythm
Pulmonary: Other (Normal WOB on room air)
GI: Soft, Non Distended and Non Tender
Extremities: No Edema
Neuro: Non Focal
[2024-03-21 07:00] VITALS: BP 132/73
[2024-03-21 08:01] LABS: Hematocrit 40.4 % (39.0-52.0); Mean Corp Hgb Conc. 34.7 g/dL (33.0-37.0); Mean Corpuscular Hgb 32.1 pg (27.0-31.0); Mean Corpuscular Volume 92.7 fL (80.0-94.0); Platelet Count 226 10^3/uL (130-400); Red Blood Cell Count 4.36 10^6/uL (4.70-6.10); Red Cell Dist. Width 14.2 % (11.5-14.5); White Blood Cell Count 6.4 10^3/uL (4.8-10.8)
[2024-03-21] MEDS: FLOMAX 0.4 MG PO (08:11)
[2024-03-21] MEDS: TENORMIN 25 MG PO (08:11)
[2024-03-21] MEDS: COLACE 100 MG PO (08:12)
[2024-03-21] MEDS: NORVASC 5 MG PO (08:12)
[2024-03-21 08:36] LABS: ALT (SGPT) 612 U/L (0-50); AST (SGOT) 201 U/L (17-59); Albumin 4.1 g/dl (3.5-5.0); Alkaline Phosphatase 178 U/L (38-126); Blood Urea Nitrogen 14 mg/dl (9-20); Calcium 9.2 mg/dl (8.4-10.2); Carbon Dioxide 24 mmol/L (22-30); Chloride 103 mmol/L (98-107); Estimated Creatinine Clearance 92 ml/min; Glucose 157 mg/dl (70-99); Potassium 4.5 mmol/L (3.5-5.1); Sodium 137 mmol/L (135-145); Total Bilirubin 10.3 mg/dl (0.2-1.3); Total Protein 6.9 g/dl (6.3-8.2); eGFR > 60.00
--- NOTE | 2024-03-21 08:39 | PTCARENOTE ---
Pt sent for CTA. Dr Parr at bedside to assess pt. Advanced diet to low fat. Pt denies pain. VSS.
--- NOTE | 2024-03-21 08:52 | CON.ONC ---
Documented by User: [email or web address] Herbert 03/21/24 11:17
Impression
Impression
pancreatic head mass
s/p ERCP/EUS 03/20 f/u FNA pathology. s/p biliary sphincterotomy with placement of metal stent in the CBD with proximal migration into the proximal bile duct (attempts of retrieval not successful), s/p placement of plastic stent within the LHD
Plan
Plan
follow for path
trend LFTs
f/u CT ab/pelvis w &w/o contrast
symptom support
Patient History
History of Present Illness
78yo M presented with abnormal labs and abdominal discomfort. He reports dyspepsia since . His symptoms have been ongoing since last Sunday and exacerbated by eating. His abdominal discomfort lasts for several hour. He was evaluated
by his PCP and advised to proceed to ER for further evaluation when LFTs results were elevated. Initial evaluation notable for Tbili 10.3, KXW003, ALT 612, alk phos 178 with unremarkable CBC and renal function. His CT ab/pelvis showed possible mild
acute interstitial edematous pancreatitis, Moderate diffuse prominence of the intra- and extra-hepatic biliary ducts. 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 He underwent
ERCP/EUS that showed a pancreatic head mass ( T1/2 NxMx) by EUS s/p FNA, dilation of the CBD up to 18 mm, severe biliary stricture within the lower third of the CBD with proximal dilation, s/p biliary sphincterotomy with placement of a metal stent
in the CBD with proximal migration into the proximal bile duct (attempts of retrieval not successful), s/p placement of plastic stent within the LHD, no evidence of significant pathology within the left hepatic lobe of the liver.
Clinically, reports fatigue, dark urine, postprandial abdominal discomfort. He denies fever, chills, chest pain, cough, shortness of breath, nausea, vomiting, constipation, diarrhea, unintentional weight loss, or urinary symptoms.
Afebrile, no hypoxia or hypotension.
Past-Medical/Surgical History
past medical history hypertension, BPH, GERD
PSH cholecystectomy, right shoulder, right knee
Social lives along, former smoker, wine on weekends, denies recreational drugs. retired
Family denies malignancy
Patient Medication
�Medication �Instructions �Recorded �Confirmed �Last Taken �Type
atenolol 25 mg tablet 25 mg PO DAILY Blood Pressure 11/27/10 03/19/24 03/22/21 05:30 History
tamsulosin 0.4 mg capsule (Flomax) 0.4 mg PO DAILY Urinary Issue 03/15/21 03/19/24 03/21/21 08:00 History
vit C 250 mg-vit E 90 mg-zinc 40 1 ea PO BID Supplement 03/15/21 03/19/24 2 Weeks Ago History
mg-copper 1 [id number] ~03/08/21
capsule (PreserVision AREDS-2)
amlodipine 5 mg tablet 5 mg PO DAILY ##0 03/22/21 03/19/24 03/21/21 08:00 Rx
acetaminophen 500 mg tablet 1,000 mg PO Q6HPRN PRN mild pain 03/19/24 03/19/24 03/18/24 History
docusate sodium 100 mg capsule 100 mg PO DAILY Gastrointestinal 03/19/24 03/19/24 Unknown History
Issue
magnesium oxide 400 mg PO DAILY Supplement 03/19/24 03/19/24 Unknown History
ondansetron HCl 8 mg tablet 8 mg PO Q8HPRN PRN nausea 03/19/24 03/19/24 03/19/24 History
therapeutic multivitamin 1 tab PO DAILY Supplement 03/19/24 03/19/24 Unknown History
turmeric 400 mg capsule 1,600 mg PO DAILY Supplement 03/19/24 03/19/24 Unknown History
Active Medications
Generic Name Dose Route Start Last Admin
Trade Name Freq PRN Reason Stop Dose Admin
Amlodipine Besylate 5 mg 03/20/24 08:00 03/21/24 08:12
Amlodipine 5 Mg Tablet PO 04/17/24 07:59 5 mg
DAILY LOLITA Administration
Atenolol 25 mg 03/20/24 08:00 03/21/24 08:11
Atenolol 25 Mg Tablet PO 04/17/24 07:59 25 mg
DAILY LOLITA Administration
Docusate Sodium 100 mg 03/20/24 08:00 03/21/24 08:12
Docusate Sodium 100 Mg Capsule PO 04/17/24 07:59 100 mg
DAILY LOLITA Administration
Hydromorphone HCl 0.25 mg 03/20/24 14:25
Hydromorphone 0.25 Mg/0.5 Ml Syringe IV 03/21/24 14:25
PACU-Q5MPRN PRN
moderate pain
Parenteral Electrolytes 1,000 mls @ 100 mls/hr 03/20/24 14:30
Normosol-R/Plasmalyte-A IV 03/21/24 14:25
PER PROTOCOL LOLITA
Ondansetron HCl 4 mg 03/20/24 14:25
Ondansetron 4 Mg/2 Ml Vial IV 03/21/24 14:25
PACU-ONCEPRN PRN
nausea/vomiting
Prochlorperazine Edisylate 5 mg 03/20/24 14:25
Prochlorperazine 10 Mg/2 Ml Vial IV 03/21/24 14:25
PACU-ONCEPRN PRN
nausea/vomiting
Sodium Chloride 0 flush 03/19/24 20:00
Sodium Chloride 0.9% (Flush) Syringe IV 04/16/24 19:59
PER PROTOCOL LOLITA
Tamsulosin HCl 0.4 mg 03/20/24 08:00 03/21/24 08:11
Tamsulosin 0.4 Mg Capsule PO 04/17/24 07:59 0.4 mg
DAILY LOLITA Administration
Review of Systems
-
ROS notable for HPI otherwise negative
Physical Exam
-
General: No Apparent Distress
HEENT: Jaundice and Moist Mucous Membranes
Cardiology: Normal Sinus Rhythm
Pulmonary: Clear
GI: Soft
Extremities: Pulses Present; Negative Edema
Neurology: Non Focal
Skin: Warm
Hematologic / Lymphatic: No Lymphadenopathy
Psych: Calm
Labs
Lab Results
WBC 6.4 10^3/uL (4.8-10.8) 03/21/24 06:47
RBC 4.36 10^6/uL (4.70-6.10) L 03/21/24 06:47
Hgb 14.0 g/dL (13.0-18.0) 03/21/24 06:47
Hct 40.4 % (39.0-52.0) 03/21/24 06:47
MCV 92.7 fL (80.0-94.0) 03/21/24 06:47
MCH 32.1 pg (27.0-31.0) H 03/21/24 06:47
MCHC 34.7 g/dL (33.0-37.0) 03/21/24 06:47
RDW 14.2 % (11.5-14.5) 03/21/24 06:47
Plt Count 226 10^3/uL (130-400) 03/21/24 06:47
MPV 12.0 fL (7.4-10.4) H 03/21/24 06:47
Abs Immat Gran (auto) 0.0 10^3/uL (0-0.05) 03/19/24 11:43
Absolute Neuts (auto) 3.8 10^3/uL (1.4-6.5) 03/19/24 11:43
Absolute Lymphs (auto) 1.0 10^3/uL (1.2-3.4) L 03/19/24 11:43
Absolute Monos (auto) 0.7 10^3/uL (0.1-0.6) H 03/19/24 11:43
Absolute Eos (auto) 0.3 10^3/uL (0-0.7) 03/19/24 11:43
Absolute Basos (auto) 0.1 10^3/uL (0-0.2) 03/19/24 11:43
Immature Gran % 0.3 % (0-0.5) 03/19/24 11:43
Neutrophils % 64.8 % (42.2-75.2) 03/19/24 11:43
Lymphocytes % 17.2 % (20.5-51.1) L 03/19/24 11:43
Monocytes % 11.5 % (1.7-9.3) H 03/19/24 11:43
Eosinophils % 5.3 % (0-6) 03/19/24 11:43
Basophils % 0.9 % (0-2) 03/19/24 11:43
Creatinine 0.8 mg/dL (0.7-1.3) 03/21/24 06:47
Vital Signs
Vital Signs
Temp Pulse Resp BP Pulse Ox
97.7 F 60 16 132/73 97
03/21/24 07:00 03/21/24 08:11 03/21/24 07:00 03/21/24 08:11 03/21/24 07:00

Documented by User: Javi Etienne MD 03/21/24 11:58
Plan
Plan
follow for path
trend LFTs
f/u CT ab/pelvis w &w/o contrast
symptom support
Oncology Addendum:
Patient seen and evaluated and agree w/ [employer] note and plan as outlined
-pancreatic head mass w/ obstructive jaundice
-s/p ERCP w/ stents along w/ EUS w/ biopsies - path pending
-surgical consultation w/ Dr. Onur Sewell - to discuss potential resectability
-CT today w/ some mild luminal narrowing of the portal-splenic and portal-mesenteric venous junction secondary to tumor located along the anterior margin of the venous junction - possible invasion the anterior vessel wall
-if vascular involvement precludes up front surgery - a potential neoadjuvant treatment approach could be considered w/ combination chemotherapy
-small 1cm left kidney lesion on CT imaging - could consider urology consultation to assess
Will continue to follow with you and arrange outpt f/u.
[2024-03-21 10:28] VITALS: BP 156/81
--- NOTE | 2024-03-21 12:48 | PTCARENOTE ---
Pt transferred to 336-2. VSS upon arrival, oriented to room and call bender. POC explained. Reports feeling 'queasy' after eating breakfast (low res diet) but 'okay'. Ambulating halls.
--- NOTE | 2024-03-21 13:32 | W.PN.HOSP.TC ---
Today's Communication/Plan
-
see A/P
Assessment / Plan
Assessment / Plan
HPI: 78-year-old male with past medical history significant for hypertension, BPH and GERD; who presented to [facility] for evaluation of abnormal labs and abdominal discomfort postprandial. Patient reports for 4-5 days SIDE [employer]ANGER he has abdominal
discomfort after food, described as generalized pain. After several days of discomfort, patient made appointment with primary and was sent for labs. He was asked to come to the ED for work up for elevated LFTs.
Patient also c/o increased fatigue and dark urine.
In the ED he was noted to be jaundiced.
MRCP:
Status post cholecystectomy.
There is diffuse severe intrahepatic bile duct dilation. Abrupt cut off of the superior common bile duct at the junction of a dilated confluence of cystic duct remnant and common hepatic duct. Dilated pancreatic duct. Findings are highly concerning
for pancreatic head carcinoma. Stricture from pancreatitis could be considered but felt to be significantly less likely.
There are multiple hepatic cysts identified. There are additional hepatic lesions, best seen on diffusion-weighted images, and these small lesions demonstrate enhancement with contrast. These are suspicious for hepatic metastatic disease.
There is mass effect upon the inferior aspect of the main portal vein by the mass within the pancreatic head, but no evidence for encasement. There is no evidence for portal vein thrombosis.
There are lymph nodes in the portal caval space, not enlarged by size criteria, but could still represent neoplastic lymphadenopathy.
A/P:
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
# suspicious for hepatic metastatic disease.
CT AP and MRCP report (above) noted
s/p ERCP/EUS 03/20, s/p biliary sphincterotomy with placement of metal stent in the CBD with proximal migration into the proximal bile duct (attempts of retrieval not successful), s/p placement of plastic stent within the LHD
f/u FNA pathology.
per GI, case to be discussed with a surgeon. Will need to determine upfront Whipple surgery vs choledochostomy and jejunostomy for surgical stent removal.
Cont to trend LFT
Hold Tylenol for now
GI on board
Onc on board
Follow CA 19-9 level
# Incidental finding of 1.1 cm enhancing mass in the left kidney suggesting concern for LEFT RENAL CELL CARCINOMA.
Uro CS
# hypertension
continue amlodipine and atenolol with hold parameter
# BPH
continue tamsulosin
# GERD
Code Status: DNR
DVT Prophylaxis: SCDs
DW GI
DW daughter on the phone
Anticipated Discharge: > 48 hours
Subjective/Interval History
-
Date of Service: March 21, 2024
Objective Data
-
Labs:
Laboratory Results
03/21/24
06:47
WBC 6.4
Hgb 14.0
Hct 40.4
Plt Count 226
Sodium 137
Potassium 4.5
Chloride 103
Carbon Dioxide 24
BUN 14
Creatinine 0.8
Glucose 157 H
Calcium 9.2
Total Bilirubin 10.3 H
AST 201 H
ALT 612 H*
Alkaline Phosphatase 178 H
Vital Signs:
Vital Signs
Temp Pulse Resp BP Pulse Ox
36.3 C 58 18 156/81 98
03/21/24 10:28 03/21/24 10:28 03/21/24 10:28 03/21/24 10:28 03/21/24 10:28
I&O
03/20/24 03/21/24 03/22/24
06:59 06:59 06:59
Intake Total 960 / 960 1750 / 1750
Balance 960 / 960 1750 / 1750
Review of Systems
-
All other systems: Reviewed and negative
Physical Exam
-
General: Well Developed, Well Nourished, No Apparent Distress, Comfortable and Conversant; Negative Respiratory Distress
HEENT: Normocephalic, Atraumatic, Nose Appears Normal and Ears Appear Normal; Negative Oxygen
Respiratory: Clear to Auscultation and Non Labored Respirations; Negative Accessory Resp Muscle Use
Cardiac: Regular Rhythm and S1/S2
GI: Soft, Nontender, Nondistended and Normal Bowel Sounds
Skin: Warm, Dry and Jaundice
Neuro: Awake, Alert, Oriented, AO x 3 and Nonfocal/Grossly Intact
Psych: Calm and Intact Judgement/Insight
Data Reviewed
-
CT Scan: Report Reviewed by me, Discussed with Patient and Discussed with Family
MRI: Report Reviewed by me and Discussed with Patient
Labs: Labs Reviewed by me
--- NOTE | 2024-03-21 14:35 | W.CON.PAL ---
Consultation
-
Date/Time Consultation Requested: 03/21/24
Date/Time Consultation Performed: 03/21/24
Requesting Provider: Deirdre Oconnor
Performing Provider: Bernice Little
Reason for Consult: Goals of Care Discussion
Primary Diagnosis: Pancreatic mass
Consult Requested By: Patient's Family
Reason for Admission
Illness Course/HPI
Patient is a 78-year-old male who was relatively healthy with pmhx of htn, bph and gerd who 1 week ago developed abdominal pain. Outpatient workup was concerning for elevated LFTs and patient was instructed to come to the ER. workup concerning for
pancreatic malignancy. Family requested palliative care consult, patient's daughter is a physician.
Functional Status
Patient is independent, drives, manages own care needs.
He has 4 children who all live out of town
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
No assistive devices in the home
Goals of Care Discussion
-
Individuals Present for Discussion & Relationship to Patient:
Patient, daughter Laquita present over the phone
Patient able to participate in discussion at time of visit: Yes
Patient's Information Preferences: Fully Involved/Able to Participate
Patient Goals
Patient with new finding of pancreatic mass, likely pancreatic cancer with possible liver involvement. Workup is not complete, and treatment options are not yet discussed.
patient states he understands that this is a sentence and that he does not want to be in pain when he is at the end.
He is open to exploring treatment options, even surgery, but does not think he would pursue aggressive chemo if he had a lot of side effects from it. Encouraged him to meet with the various physicians with an open mind as to options.
Discussed palliative care services, interested in outpatient services - will plan for clinic visits as patient with good functional status at this time, transition to home if things change
He is DNR. He needs to update his Living will. would like all his kids to be involved in decision making and receive information if needed
Pain & Symptom Assessment
-
denies pain, nausea, or other symptoms at this time.
Objective Data
-
Objective Data:
Vital Signs
Temp Pulse Resp BP Pulse Ox
97.4 F 58 18 156/81 98
03/21/24 10:28 03/21/24 10:28 03/21/24 10:28 03/21/24 10:28 03/21/24 10:28
Laboratory Results
03/21/24 06:47
03/21/24 06:47
PT 12.8 Sec (11.4-14.6) 03/19/24 15:35
INR 0.91 03/19/24 15:35
APTT 28.7 Sec (23.4-35.0) 03/19/24 15:35
Total Protein 6.9 g/dl (6.3-8.2) 03/21/24 06:47
Albumin 4.1 g/dl (3.5-5.0) 03/21/24 06:47
Urine Color Yellow 03/19/24 11:43
Urine Clarity Clear (Clear) 03/19/24 11:43
Urine pH 7.0 (5.0-9.0) 03/19/24 11:43
Ur Specific [place] 1.010 (<1.030) 03/19/24 11:43
Urine Ketones 1+ (Negative) A 03/19/24 11:43
Urine Bilirubin 3+ (Negative) A 03/19/24 11:43
Palliative Performance Scale
Palliative Performance Scale:
PPS Level Ambulation Activity & Evidence of Disease Self Care Intake Conscious Level
100% Full Normal Activity & Work; Full Intake Full
No Evidence of Disease
90% Full Normal Activity & Work; Full Normal Full
Some Evidence of Disease
80% Full Normal Activity with Effort Full Normal or Full
Some Evidence of Disease Reduced
70% Reduced Unable Normal Job/Work Full Normal or Full
Significant Disease Reduced
60% Reduced Unable Hobby/Housework Occasional Normal or Full or Confusion
Significant Disease Assistance Reduced
50% Mainly Sit/Lie Unable to do Any Work Considerable Normal or Full or Confusion
Extensive Disease Assistance Req'd Reduced
40% Mainly in Bed Unable to do Most Activity Mainly Assistance Normal or Full or Drowsy;
Extensive Disease Reduced +/- Confusion
30% Totally Bed Unable to do Any Activity Total Care Normal or Full or Drowsy;
Bound Extensive Disease Reduced +/- Confusion
20% Totally Bed Bound Unable to do Any Activity Total Care Minimal to Full or Drowsy;
Extensive Disease Sips +/- Confusion
10% Totally Bed Bound Unable to do Any Activity Total Care Mouth Care Drowsy or Coma;
Extensive Disease Only +/- Confusion
0%
PPS Score Level:
Palliative Performance Score Response
Palliative Performance Score Response: 80%
Physical Exam
-
General: Well Developed
HEENT: Other (jaundice present)
Neuro: Awake and Alert
Psych: Calm
Assessment / Plan
-
Assessment/Plan:
New finding of pancreatic cancer, likely malignancy during this hospitalization
Patient open to exploring treatment options
patient with good functional status, minimal symptoms at this time recommend palliative care clinic visits
total floor time 60 mins including discussion with family 1-2pm
[2024-03-21 15:15] VITALS: BP 139/83
--- NOTE | 2024-03-21 16:20 | CONS.URO ---
Consultation
-
Performing Provider: Sheila
Reason for Consultation: Left renal mass
Medical History
History of Present Illness
78M with prior urologic hx of BPH on flomax
Known to Dr. Hernandez for high PSA in the past which is monitored
Admitted for evaluation of jaundice and GI symptoms and found to have pancreatic tumor c/w pancreatic cancer with possible metastatic disease
Imaging also showed a 1cm solid enhancing L renal mass c/w RCC
Urology asked to evaluate
Past Medical History
Past Medical History: Other (hypertension BPH GERD)
Past Surgical History: Other (cholecystectomy Right total shoulder Right total knee)
Social History
Tobacco: Former Smoker
Alcohol: None
Drug: None
Family History
Family History: Reviewed & Not Pertinent
Allergies/Home Medications
Allergies
Allergy/AdvReac Type Severity Reaction Status Date / Time
No Known Allergies Allergy Verified 03/19/24 15:19
Home Medications
�Medication �Instructions �Recorded �Confirmed �Type
atenolol 25 mg tablet 25 mg PO DAILY Blood Pressure 11/27/10 03/19/24 History
tamsulosin 0.4 mg capsule (Flomax) 0.4 mg PO DAILY Urinary Issue 03/15/21 03/19/24 History
vit C 250 mg-vit E 90 mg-zinc 40 1 ea PO BID Supplement 03/15/21 03/19/24 History
mg-copper 1 [id number]
capsule (PreserVision AREDS-2)
amlodipine 5 mg tablet 5 mg PO DAILY ##0 03/22/21 03/19/24 Rx
acetaminophen 500 mg tablet 1,000 mg PO Q6HPRN PRN mild pain 03/19/24 03/19/24 History
docusate sodium 100 mg capsule 100 mg PO DAILY Gastrointestinal 03/19/24 03/19/24 History
Issue
magnesium oxide 400 mg PO DAILY Supplement 03/19/24 03/19/24 History
ondansetron HCl 8 mg tablet 8 mg PO Q8HPRN PRN nausea 03/19/24 03/19/24 History
therapeutic multivitamin 1 tab PO DAILY Supplement 03/19/24 03/19/24 History
turmeric 400 mg capsule 1,600 mg PO DAILY Supplement 03/19/24 03/19/24 History
Physical Exam
Vital Signs
Vital Signs
Temp Pulse Resp BP Pulse Ox
97.5 F 58 18 139/83 98
03/21/24 15:15 03/21/24 15:15 03/21/24 15:15 03/21/24 15:15 03/21/24 15:15
Lab / Testing Results
Laboratory Results
03/21/24 06:47
03/21/24 06:47
Physical Exam
General: Well Developed, Well Nourished and No Apparent Distress
Respiratory: Non Labored Respirations
Skin: Warm and Dry
Neuro: AO x 3
Psych: Calm and Intact Judgement
Assessment / Plan
-
78M admitted with jaundice due to pancreatic head mass
Incidentally found 1cm L renal mass
Reviewed imaging with radiology confirming presence of this lesion on MRI 03/[address]
- 1cm Small renal mass consistent with primary RCC, less likely metastatic focus
- No acute treatment recommended especially given new pancreatic mass with likely high mortality
- Small renal tumors even when known renal cell carcinoma have extremely low risk of metastasis or local symptoms
- Pending outcome of his pancreatic cancer treatment, would suggest follow up imaging in 12 months to trend growth
Data Reviewed
-
CT Scan: Image personally visualized and interpreted and Discussed with Physician
MRI: Image personally visualized and interpreted and Discussed with Physician
Lab Data: Labs Reviewed
[2024-03-21] MEDS: TUMS CHEWABLE TABLET 200 MG PO (21:19)
[2024-03-21 23:35] VITALS: BP 142/84
[2024-03-22 05:47] LABS: Hematocrit 39.7 % (39.0-52.0); Hemoglobin 14.1 g/dL (13.0-18.0); Mean Corp Hgb Conc. 35.5 g/dL (33.0-37.0); Mean Corpuscular Hgb 32.3 pg (27.0-31.0); Mean Corpuscular Volume 91.1 fL (80.0-94.0); Platelet Count 215 10^3/uL (130-400); Red Blood Cell Count 4.36 10^6/uL (4.70-6.10); Red Cell Dist. Width 14.7 % (11.5-14.5); White Blood Cell Count 8.7 10^3/uL (4.8-10.8)
[2024-03-22 06:14] LABS: ALT (SGPT) 521 U/L (0-50); AST (SGOT) 152 U/L (17-59); Alkaline Phosphatase 158 U/L (38-126); Blood Urea Nitrogen 19 mg/dl (9-20); Carbon Dioxide 28 mmol/L (22-30); Chloride 103 mmol/L (98-107); Estimated Creatinine Clearance 82 ml/min; Glucose 148 mg/dl (70-99); Potassium 4.6 mmol/L (3.5-5.1); Sodium 139 mmol/L (135-145); Total Bilirubin 6.4 mg/dl (0.2-1.3); Total Protein 6.6 g/dl (6.3-8.2); eGFR > 60.00
[2024-03-22 08:00] VITALS: BP 142/82
--- NOTE | 2024-03-22 09:22 | CON.SURG ---
Surgical Consultation
-
Mr. Nigel Robertson (1945) is a 78-year-old man who was recently diagnosed with a pancreatic head tumor suspicious of cancer. He presented to the emergency department with abdominal discomfort and elevated LFTs. Subsequent workup with abdominal
ultrasound and CT scan revealed biliary duct dilatation. An abdominal MRI was also obtained, which revealed findings suspicious for pancreatic head carcinoma with multiple hepatic lesions. Although most hepatic lesions appear to be simple benign
cysts, some had some findings suspicious for hepatic metastatic disease (all subcentimeter). On 03/20/24, he underwent ERCP/EUS confirming a pancreatic mass measuring 2.0 cm tumor abutting the portal vein. At that time, he had a fine-needle
aspiration biopsy, sphincterotomy, and placement of a covered metal stent, which migrated into the CBD, requiring another plastic stent. To define the relationship between the tumor and the surrounding vessel, he had a CT angiogram, which revealed a
3.8 cm pancreatic head tumor extending along the right lateral margins of the superior mesenteric vein, portal vein, and splenic vein junction, causing narrowing of the confluence, which suggests at least some vascular involvement. I reviewed the
above studies and films and the official reading with the patient and his daughter via phone. Currently, he is feeling ok, without abdominal pain, nausea, or vomiting. His past medical history is significant for HTN, BPH, and GERD. He is allergic to
no medications.
He was anicteric. His abdomen was soft, ND, and NT without palpable masses.
I had a long discussion with Mr. Robertson and his daughter regarding his probable pancreatic head cancer. I informed them that the only therapy that has definitively been shown to increase the survival of patients with pancreatic cancer is surgical
resection. For patients with diseases not amenable to curative resection, little has been shown to impact survival significantly, of which they are fully aware. There are several issues at hand: questionable liver lesions, portal vein involvement,
and a free-floating metal stent within the CBD. Ideally, I would recommend neoadjuvant systemic therapy to shrink the tumor to avoid vascular reconstruction and also ensure that his liver lesions do not progress before making any decisions regarding
surgical intervention, which would be the Whipple procedure. However, due to the free-floating metal stent in the CBD, which may cause significant complications, we may not have time to consider neoadjuvant therapy. Furthermore, he and his daughter, "Avril"who is an integrated oncology nurse, are not sure about chemotherapy. His other options include proceeding with surgical exploration, liver biopsy, attempting the Whipple procedure with possible portal vein reconstruction, or just retrieving the "Avril"stents and performing surgical bypass (choledojejunostomy). The nature and purpose of the operation, the risks involved, and the possible complications and side effects were fully explained. They would like to consider these options further and let "Avril"me know his decision on his appointment on 04/06/24, which is already scheduled. I also offered to discuss his case at the multidisciplinary tumor conference, in which they are very interested.
[2024-03-22] MEDS: NORVASC 5 MG PO (10:02)
[2024-03-22] MEDS: FLOMAX 0.4 MG PO (10:02)
[2024-03-22] MEDS: COLACE 100 MG PO (10:02)
[2024-03-22] MEDS: TENORMIN 25 MG PO (10:05)
--- NOTE | 2024-03-22 10:24 | W.PN.GI.CBS2 ---
Today's Communication / Plan
-
EUS-FNA results still pending, will be f/u with Dr. Bush as an outpatient. Needs close follow-up with surgical oncology and medical oncology to further discuss options. Rest of care as outlined below. GI will sign-off. Please call back with any
questions or concerns.
Assessment / Plan
-
#Pancreatic Head Mass
#Obstructive Jaundice
Mr. Robertson is a pleasant 78-year-old male who presented with symptoms of dyspepsia since gi with decreased appetite, postprandial pain with nausea and recent outpatient labs showed jaundice and was recommended to come into the ER. Workup
so far has revealed obstructive jaundice and imaging has shown ductal dilatation concerning for pancreatic neoplasm. CT initially showed possible pancreatitis but lipase was normal MRI showed no evidence of pancreatitis. Recent EUS/ERCP 03/20/24
revealing pancreatic head mass s/p FNA and resulting in malignant biliary obstruction s/p metal stent as below however with migration into proximal biliary tree and unable to be retrieved.
MRI/MRCP 03/20/24: There is diffuse severe intrahepatic bile duct dilation. Abrupt cut off of the superior common bile duct at the junction of a dilated confluence of cystic duct remnant and common hepatic duct. Dilated pancreatic duct. Findings are
highly concerning for pancreatic head carcinoma. Stricture from pancreatitis could be considered but felt to be significantly less likely. There are multiple hepatic cysts identified. There are additional hepatic lesions, best seen on
diffusion-weighted images, and these small lesions demonstrate enhancement with contrast. These are suspicious for hepatic metastatic disease. There is mass effect upon the inferior aspect of the main portal vein by the mass within the pancreatic
head, but no evidence for encasement. There is no evidence for portal vein thrombosis. There are lymph nodes in the portal caval space, not enlarged by size criteria, but could still represent neoplastic lymphadenopathy. Status post cholecystectomy.
S/p EUS/ERCP 03/20/24: Mass identified in the pancreatic head (staged T1/2 NxMx) by EUS s/p FNA, dilation of the CBD up to 18 mm, severe biliary stricture within the lower third of the CBD with proximal dilation, s/p biliary sphincterotomy with
placement of a 10 mm by 4 cm metal stent in the CBD with proximal migration into the proximal bile duct (attempts of retrieval not successful), s/p placement of one 10 Fr x 5 cm plastic stent within the LHD, no evidence of significant pathology
within the left hepatic lobe of the liver.
CTA Abd/pelvis 03/21/24: Mild luminal narrowing of the portal-splenic and portal-mesenteric venous junction secondary to tumor located along the anterior margin of the venous junction which is probably invading the anterior vessel wall. No CT
evidence for venous occlusion or thrombosis. 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 Interval placement of metal and plastic biliary stents alleviating the previously visualized
severe intrahepatic biliary dilatation. No CTA evidence for major arterial vessel encasement or thrombosis. Multiple hepatic cysts. 1.1 cm enhancing mass in the left kidney suggesting LEFT RENAL CELL CARCINOMA.
Recommendations:
- Diet as tolerated
- LFTs trending down along with T Bili
- Await FNA results from recent EUS of HOP mass (still pending), will be f/u with Dr. Bush along with coordination of outpatient f/u
- Recent CTA suggestive of vascular involvement
- Has f/u with hepatobiliary surgery with Dr. Sewell on 04/06/24 to further discuss patient's surgical options along with possible consideration of performing surgical bypass (choledojejunostomy) for stent removal
- No plans for repeat ERCP at this time for metal stent retrieval, additionally with plastic stent to ensure patency of retained metal stent
- Outpatient f/u with Oncology as scheduled along with palliative care
- Pain control and IV-antiemetics PRN
- Rest of care per primary team
Discussed with primary internal medicine team this morning. Okay to discharge with close outpatient follow-up. GI team will sign-off. Please call back with any questions or concerns.
Subjective
Subjective
Date of Service: March 22, 2024
- LFTs improving with T Bili 10.3 -> 6.4
- Otherwise, no acute events overnight
Feeling well this morning without any abdominal pain, nausea or vomiting. Continues to deny any fevers, chills or other constitutional symptoms.
Objective
Data Reviewed
Laboratory Data:
Laboratory Results
03/22/24 05:21
03/22/24 05:21
Laboratory Results
PT 12.8 Sec (11.4-14.6) 03/19/24 15:35
INR 0.91 03/19/24 15:35
APTT 28.7 Sec (23.4-35.0) 03/19/24 15:35
Total Bilirubin 6.4 mg/dl (0.2-1.3) H 03/22/24 05:21
AST 152 U/L (17-59) H 03/22/24 05:21
ALT 521 U/L (0-50) H* 03/22/24 05:21
Alkaline Phosphatase 158 U/L (38-126) H 03/22/24 05:21
Lipase 18 U/L (23-300) L 03/19/24 11:43
Vital Signs and I&O:
Vital Signs
Temp Pulse Resp BP Pulse Ox
97.5 F 58 18 142/82 98
03/22/24 08:00 03/22/24 08:00 03/22/24 08:00 03/22/24 08:00 03/22/24 08:00
I&O
03/21/24 03/22/24 03/23/24
06:59 06:59 06:59
Intake Total 1750 / 1750 1600 / 1600
Balance 1750 / 1750 1600 / 1600
Physical Exam
Physical Exam
HEENT: Moist mucous membranes and Other (Scleral icterus)
Cardiology: Normal Sinus Rhythm
Pulmonary: Clear
GI: Soft, Non Distended and Non Tender
Extremities: No Edema
Neuro: Non Focal
--- NOTE | 2024-03-22 11:03 | W.PN.HOSP.TC ---
Addendum entered and electronically signed by Pina Olmstead MD 03/22/24 13:29:
total DC time 38 min
Original Note:
Today's Communication/Plan
-
DC home today
Assessment / Plan
Assessment / Plan
HPI: 78-year-old male with past medical history significant for hypertension, BPH and GERD; who presented to [facility] for evaluation of abnormal labs and abdominal discomfort postprandial. Patient reports for 4-5 days [employer] he has abdominal
discomfort after food, described as generalized pain. After several days of discomfort, patient made appointment with primary and was sent for labs. He was asked to come to the ED for work up for elevated LFTs.
Patient also c/o increased fatigue and dark urine.
In the ED he was noted to be jaundiced.
MRCP:
Status post cholecystectomy.
There is diffuse severe intrahepatic bile duct dilation. Abrupt cut off of the superior common bile duct at the junction of a dilated confluence of cystic duct remnant and common hepatic duct. Dilated pancreatic duct. Findings are highly concerning
for pancreatic head carcinoma. Stricture from pancreatitis could be considered but felt to be significantly less likely.
There are multiple hepatic cysts identified. There are additional hepatic lesions, best seen on diffusion-weighted images, and these small lesions demonstrate enhancement with contrast. These are suspicious for hepatic metastatic disease.
There is mass effect upon the inferior aspect of the main portal vein by the mass within the pancreatic head, but no evidence for encasement. There is no evidence for portal vein thrombosis.
There are lymph nodes in the portal caval space, not enlarged by size criteria, but could still represent neoplastic lymphadenopathy.
A/P:
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
# suspicious for hepatic metastatic disease.
CT AP and MRCP report (above) noted.
s/p ERCP/EUS 03/20, s/p biliary sphincterotomy with placement of metal stent in the CBD with proximal migration into the proximal bile duct (attempts of retrieval not successful), s/p placement of plastic stent within the LHD
f/u FNA pathology.
Appreciate input from Dr Sewell. Definitive surgical plan (or not) to be further discussed outpt.
Cont to trend LFT
Hold Tylenol for now
GI on board
Onc on board
Follow CA 19-9 level outpt
# Incidental finding of 1.1 cm enhancing mass in the left kidney suggesting concern for LEFT RENAL CELL CARCINOMA.
appreciate Uro input, no need for further investigation given more critical finding of pancreatic head carcinoma
Can follow up for repeat imaging in 12 months to trend growth
# hypertension
continue amlodipine and atenolol with hold parameter
# BPH
continue tamsulosin
# GERD
Code Status: DNR
DVT Prophylaxis: SCDs
DW GI
DW daughter on the phone
Anticipated Discharge: Today
Subjective/Interval History
-
Date of Service: March 22, 2024
Objective Data
-
Labs:
Laboratory Results
03/22/24
05:21
WBC 8.7
Hgb 14.1
Hct 39.7
Plt Count 215
Sodium 139
Potassium 4.6
Chloride 103
Carbon Dioxide 28
BUN 19
Creatinine 0.9
Glucose 148 H
Calcium 9.0
Total Bilirubin 6.4 H
AST 152 H
ALT 521 H*
Alkaline Phosphatase 158 H
Vital Signs:
Vital Signs
Temp Pulse Resp BP Pulse Ox
36.4 C 58 18 142/82 98
03/22/24 08:00 03/22/24 08:00 03/22/24 08:00 03/22/24 08:00 03/22/24 08:00
I&O
03/21/24 03/22/24 03/23/24
06:59 06:59 06:59
Intake Total 1750 / 1750 1600 / 1600
Balance 1750 / 1750 1599 / 1599
Review of Systems
-
All other systems: Reviewed and negative
Physical Exam
-
General: Well Developed, Well Nourished, No Apparent Distress, Comfortable and Conversant; Negative Respiratory Distress
HEENT: Normocephalic, Atraumatic, Nose Appears Normal and Ears Appear Normal; Negative Oxygen
Respiratory: Clear to Auscultation and Non Labored Respirations; Negative Accessory Resp Muscle Use
Cardiac: Regular Rhythm and S1/S2
GI: Soft, Nontender, Nondistended and Normal Bowel Sounds
Skin: Warm, Dry and Jaundice
Neuro: Awake, Alert, Oriented, AO x 3 and Nonfocal/Grossly Intact
Psych: Calm and Intact Judgement/Insight
Data Reviewed
-
CT Scan: Report Reviewed by me, Discussed with Patient and Discussed with Family
MRI: Report Reviewed by me and Discussed with Patient
Labs: Labs Reviewed by me
[2024-03-22 11:53] VITALS: BP 138/80
--- NOTE | 2024-03-22 13:15 | W.DCSUMMARY ---
Discharge Summary
Discharge Data
Date of Admission: 03/19/24
Date of Discharge: 03/22/24
-
Pending Results: No
Hospital Course
Principal Diagnosis:
Painless jaundice with non-specific postprandial abdominal pain due to likely pancreatic head carcinoma with diffuse severe intrahepatic bile duct dilation
Suspicious for hepatic metastatic disease.
Incidental finding of 1.1 cm enhancing mass in the left kidney suggesting left renal cell carcinoma.
Chronic Diagnoses:�
Essential hypertension
Benign prostate hypertrophy
GERD
Consultations:�
Gastroenterology
Oncology
Surgical oncology
Urology
Procedures:�
ERCP/EUS 03/20, s/p biliary sphincterotomy with placement of metal stent in the CBD with proximal migration into the proximal bile duct (attempts of retrieval not successful), s/p placement of plastic stent within the LHD
Clinical course:�
This is a 78-year-old male, with past medical history as stated above, who presented for abnormal outpatient blood work and postprandial abdominal discomfort.
Problem 1:
Painless jaundice with non-specific postprandial abdominal pain due to likely pancreatic head carcinoma with diffuse severe intrahepatic bile duct dilation.
Suspicious for hepatic metastatic disease.
His CT AP and MRCP noted diffuse severe intrahepatic bile duct dilation, abrupt cut off of the superior common bile duct, concerning for pancreatic head carcinoma.
Hepatic lesions were also noted which were suspicious for hepatic metastatic disease.
He underwent ERCP/EUS on 03/20/2024: s/p biliary sphincterotomy with placement of metal stent in the CBD with proximal migration into the proximal bile duct (attempts of retrieval not successful), s/p placement of plastic stent within the LHD.
He can follow-up FNA pathology outpatient.
The patient met with Dr. Su, surgical oncologist, and he can continue to discuss definitive surgical plan outpatient.
He can also follow-up the CA 19�9 level outpatient with oncology.
Problem 2:
Incidental finding of 1.1 cm enhancing mass in the left kidney suggesting left renal cell carcinoma.
This was assessed by urology, who recommended to address the more urgent pancreatic head carcinoma before addressing the possible renal cell carcinoma.
The patient can follow-up for repeat imaging in 12 months to trend growth.
As for the rest of his medical problems, they were stable during his hospital stay.
Discharge Plan
-
Patient Disposition: Home (Routine Discharge)
Discharge Diagnosis/Procedures: Painless jaundice with non-specific postprandial abdominal pain due to likely pancreatic head carcinoma with diffuse severe intrahepatic bile duct dilation;
Suspicious for hepatic metastatic disease;
Status post ERCP/EUS 03/20/24 (biliary sphincterotomy with placement of metal stent in the common bile duct with proximal migration into the proximal bile duct- attempted of retrieval not successful- placement of plastic stent);
Incidental finding of 1.1 cm enhancing mass in the left kidney suggesting LEFT RENAL CELL CARCINOMA.
Condition: Fair
Diet: As tolerated, Low Fat and Low Cholesterol
Activity: As tolerated
Driving Restrictions: As prior to admission
Referrals:
Arnie Guthrie MD [Family Provider] - in less than 1 week
Prescriptions:
Continued
atenolol 25 MG tablet
25 mg PO DAILY
tamsulosin [Flomax] 0.4 MG capsule
0.4 mg PO DAILY
PreserVision AREDS-2 1 EACH capsule
1 ea PO BID
amlodipine 5 MG tablet
5 mg PO DAILY Qty: 0 0RF
ondansetron HCl 8 mg Tablet
8 mg PO Q8HPRN PRN (Reason: nausea)
therapeutic multivitamin Tablet
1 tab PO DAILY
magnesium oxide 400 mg magnesium Tablet
400 mg PO DAILY
docusate sodium 100 MG capsule
100 mg PO DAILY
Discontinued
turmeric 400 mg Capsule
1,600 mg PO DAILY
acetaminophen 500 MG tablet
1,000 mg PO Q6HPRN PRN (Reason: mild pain)
Discharge Orders:
Discharge Patient (As Directed); Ordered 03/22/24
Ordered By: Pina Olmstead
Discharge Date and Time
Discharge Date/Time: 03/22/24 11:50
Print Language: PALESTINIAN
[2024-03-22 23:15] LABS: CA 19-9 2660 U/mL (<=35)
== END 2024-03-22 11:50 | disposition home or self-care (01) | DRG 435 ==
LOC: 3 WEST ACU 18:13
PROVIDERS: Internal Medicine; Nurse Practitioner Family; Physician Assistant; ADMITTING PHYSICIAN Internal Medicine; CONSULT PHYSICIAN Internal Medicine Gastroenterology; CONSULT PHYSICIAN Internal Medicine Hematology & Oncology; CONSULT PHYSICIAN Internal Medicine Hospice and Palliative Medicine; CONSULT PHYSICIAN Urology; EMERGENCY PHYSICIAN Student in an Organized Health Care Education/Training Program; FAMILY PHYSICIAN Family Medicine; OTHER PHYSICIAN Surgery
PROC: 0F798DZ Dilation of Common Bile Duct with Intraluminal Device, Via Natural or Artificial Opening Endoscopic (ICD-10-PCS; 2024-03-20)
PROC: 0DJ08ZZ Inspection of Upper Intestinal Tract, Via Natural or Artificial Opening Endoscopic (ICD-10-PCS; 2024-03-20)
DX: C25.0 Malignant neoplasm of head of pancreas (principal); K83.1 Obstruction of bile duct; C78.7 Secondary malignant neoplasm of liver and intrahepatic bile duct; I10 Essential (primary) hypertension; K21.9 Gastro-esophageal reflux disease without esophagitis; N28.89 Other specified disorders of kidney and ureter; N40.0 Benign prostatic hyperplasia without lower urinary tract symptoms; Z66 Do not resuscitate; Z87.891 Personal history of nicotine dependence
CPT/HCPCS: 88172; 88173; 88305; 74174; 74177; 74183; 74330; 76000; 76700; 80053; 80076; 81003; 81015; 83690; 85025; 85027; 85610; 85730; 86301; 86705; 86706; 86709; 86803; 87086; 87340; 88177; 99284; A9575; C1874; C2617; Q9967

== ENCOUNTER → 2024-04-01 08:58 | Outpatient (REF) | payer MEDICARE, OTHER, SELFPAY ==
[2024-04-01 09:49] LABS: ALT (SGPT) 145 U/L (0-50); AST (SGOT) 54 U/L (17-59); Albumin 4.1 g/dl (3.5-5.0); Alkaline Phosphatase 104 U/L (38-126); Direct Bilirubin 1.2 mg/dl (0.0-0.4); Total Bilirubin 1.6 mg/dl (0.2-1.3); Total Protein 6.7 g/dl (6.3-8.2)
== END ==
LOC: REG 08:58
PROVIDERS: ATTENDING PHYSICIAN Internal Medicine Gastroenterology
DX: C25.9 Malignant neoplasm of pancreas, unspecified (principal)
CPT/HCPCS: 36415; 80076

== ENCOUNTER 2024-04-08 06:11 | Day surgery (SDC) | payer MEDICARE, OTHER, SELFPAY ==
--- NOTE | 2024-04-04 13:17 | PTCARENOTE ---
Abn AST/ALT, Dominga at Dr. Sewell's office aware.
--- NOTE | 2024-04-04 13:51 | PTCARENOTE ---
Abn AST/ALT, Dr. Mccabe made aware and reviewed, no requests made.
[2024-04-08 08:35] VITALS: BMI 28.2
[2024-04-08 08:40] VITALS: BP 154/80
[2024-04-08 08:56] VITALS: BMI 28.2
[2024-04-08] MEDS: NORMOSOL-R/PLASMALYTE-A 1000 IV (09:03)
[2024-04-08] MEDS: TYLENOL 1000 MG PO (09:04)
[2024-04-08] MEDS: NEURONTIN 300 MG PO (09:04)
[2024-04-08] MEDS: HEPARIN 5000 UNITS SC (09:22)
--- NOTE | 2024-04-08 09:55 | OR.RPT ---
Operative Report
Operative Report
Date of Operation: April 08, 2024
Preoperative Diagnosis: Pancreas Cancer of the head - C250
Postoperative Diagnosis: Same
Surgeon: Onur Sewell M.D.
Operation: Insertion of single-lumen port via right subclavian vein � [id number]
Anesthesia: Local with IV sedation
Estimated Blood Loss: Minimal
Drains: None
Specimen: none
Complications: �None
Procedure:
The patient was taken to the operating room and placed in the usual supine position. After adequate IV sedation was obtained patient's right neck and chest were prepped and draped in the usual sterile fashion. Approximately 3 cm transverse incision
was made 4 cm below the midclavicular line after injecting the area with 1% lidocaine. An incision was made with a #15 blade, and a subcutaneous pocket was created using electrocautery.� The right subclavian vein was accessed using a large-bore
needle through the same incision. The guidewire was passed through the needle into the SVC and confirmed on the fluoroscopy. Over the guidewire, the subcutaneous tissue was dilated, and the angio-sheath was placed in the SVC. The port was placed in
the subcutaneous pocket, and the catheter was passed through the angio-sheath into the SVC and confirmed on fluoroscopy.� The ports were aspirated and flushed without any resistance.� After obtaining adequate hemostasis, the incision was closed in
multiple layers. The subcutaneous tissue was reapproximated with # 3-0 Vicryl, and the skin was reapproximated with #4-0 Monocryl in a running subcuticular fashion. The patient tolerated the procedure well. The final instrument, needle, and sponge
counts were correct. The patient was transferred to the recovery room.
[2024-04-08 10:04] VITALS: BP 110/76
[2024-04-08 10:15] VITALS: BP 99/71
[2024-04-08 10:30] VITALS: BP 123/73
[2024-04-08 10:45] VITALS: BP 125/76
[2024-04-08 11:00] VITALS: BP 123/74
== END 2024-04-08 11:30 | disposition home or self-care (01) ==
LOC: SDS 06:11
PROVIDERS: ATTENDING PHYSICIAN Surgery
DX: C25.0 Malignant neoplasm of head of pancreas (principal)
CPT/HCPCS: 36561; 71045; 76000; C1788

== ENCOUNTER 2024-04-25 06:22 | Day surgery (SDC) | payer MEDICARE, OTHER, SELFPAY ==
[2024-04-25 10:45] VITALS: BMI 29.4
[2024-04-25 10:50] VITALS: BMI 29.4
[2024-04-25 11:06] VITALS: BP 140/77
[2024-04-25 15:10] VITALS: BP 119/67; BP 140/77
[2024-04-25 15:15] VITALS: BP 112/74
[2024-04-25 15:30] VITALS: BP 130/73
[2024-04-25 15:45] VITALS: BP 126/78
[2024-04-25 16:00] VITALS: BP 145/79
== END 2024-04-25 16:20 | disposition home or self-care (01) ==
LOC: SDS 06:22
PROVIDERS: ATTENDING PHYSICIAN Internal Medicine Gastroenterology
DX: C25.0 Malignant neoplasm of head of pancreas (principal); K83.1 Obstruction of bile duct; K31.5 Obstruction of duodenum; K31.89 Other diseases of stomach and duodenum; Z46.59 Encounter for fitting and adjustment of other gastrointestinal appliance and device
CPT/HCPCS: 43245; C1726; C1769

== ENCOUNTER → 2024-04-28 08:59 | Outpatient (REF) | payer MEDICARE, OTHER, SELFPAY ==
[2024-04-28 09:23] LABS: INR 0.98; PT 13.3 Sec (11.4-14.6)
[2024-04-28 09:24] LABS: APTT 32.5 Sec (23.4-35.0)
[2024-04-28 12:20] LABS: % Basophils 0.7 % (0-2); % Eosinophils 6.1 % (0-6); % Immature Granulocytes 0.4 % (0-0.5); % Monocytes 10.4 % (1.7-9.3); % Neutrophils 59.4 % (42.2-75.2); Absolute Basophils 0.1 10^3/uL (0-0.2); Absolute Eosinophils 0.4 10^3/uL (0-0.7); Absolute Lymphocytes 1.7 10^3/uL (1.2-3.4); Absolute Monocytes 0.8 10^3/uL (0.1-0.6); Absolute Neutrophils 4.3 10^3/uL (1.4-6.5); Hematocrit 40.7 % (39.0-52.0); Mean Corp Hgb Conc. 34.4 g/dL (33.0-37.0); Mean Corpuscular Hgb 31.8 pg (27.0-31.0); Mean Corpuscular Volume 92.5 fL (80.0-94.0); Mean Platelet Volume 10.5 fL (7.4-10.4); Nucleated Red Blood Cells % 0 % (-); Platelet Count 281 10^3/uL (130-400); Red Cell Dist. Width 12.5 % (11.5-14.5); White Blood Cell Count 7.2 10^3/uL (4.8-10.8)
[2024-04-28 12:39] LABS: ALT (SGPT) 52 U/L (0-50); AST (SGOT) 30 U/L (17-59); Albumin 4.2 g/dl (3.5-5.0); Alkaline Phosphatase 94 U/L (38-126); Blood Urea Nitrogen 18 mg/dl (9-20); Calcium 9.5 mg/dl (8.4-10.2); Carbon Dioxide 27 mmol/L (22-30); Chloride 101 mmol/L (98-107); Glucose 134 mg/dl (70-99); Potassium 4.9 mmol/L (3.5-5.1); Sodium 139 mmol/L (135-145); Total Bilirubin 0.9 mg/dl (0.2-1.3); eGFR > 60.00
== END ==
LOC: PET 08:59
PROVIDERS: ATTENDING PHYSICIAN Internal Medicine Hematology & Oncology; FAMILY PHYSICIAN Family Medicine
DX: C25.0 Malignant neoplasm of head of pancreas (principal); R17 Unspecified jaundice
CPT/HCPCS: 36415; 80053; 85025; 85610; 85730

== ENCOUNTER → 2024-05-09 09:13 | Outpatient (REF) | payer MEDICARE, OTHER, SELFPAY ==
[2024-05-09 10:29] LABS: Hematocrit 38.4 % (39.0-52.0); Hemoglobin 13.1 g/dL (13.0-18.0); Mean Corp Hgb Conc. 34.1 g/dL (33.0-37.0); Mean Corpuscular Hgb 31.8 pg (27.0-31.0); Mean Corpuscular Volume 93.2 fL (80.0-94.0); Mean Platelet Volume 11.5 fL (7.4-10.4); Platelet Count 258 10^3/uL (130-400); Red Blood Cell Count 4.12 10^6/uL (4.70-6.10); Red Cell Dist. Width 13.2 % (11.5-14.5); White Blood Cell Count 20.8 10^3/uL (4.8-10.8)
[2024-05-09 10:35] LABS: ALT (SGPT) 59 U/L (0-50); AST (SGOT) 31 U/L (17-59); Albumin 3.7 g/dl (3.5-5.0); Alkaline Phosphatase 195 U/L (38-126); Blood Urea Nitrogen 15 mg/dl (9-20); Calcium 8.5 mg/dl (8.4-10.2); Carbon Dioxide 30 mmol/L (22-30); Chloride 99 mmol/L (98-107); Glucose 115 mg/dl (70-99); Potassium 5.1 mmol/L (3.5-5.1); Sodium 137 mmol/L (135-145); Total Bilirubin 0.6 mg/dl (0.2-1.3); Total Protein 6.3 g/dl (6.3-8.2); eGFR > 60.00
[2024-05-09 11:15] LABS: Absolute Neutrophils -Man Diff 13.7 10^3/uL (1.4-6.5); Atypical Lymphocytes 5 %; Band Neutrophils 14 % (0-3); Eosinophils 3 % (0-6); Lymphocytes 10 % (20-51); Metamyelocytes 4 % (-); Monocytes 12 % (2-9); Segmented Neutrophils 52 % (42-75)
[2024-05-09 11:16] LABS: Anisocytosis 1+; Hypochromasia 1+; Normal RBC Morphology No; Nucleated Red Blood Cells 1 (-); Platelets Checked Yes; Polychromasia 1+
[2024-05-09 11:17] LABS: Total Cells Counted 100
== END ==
LOC: REG 09:13
PROVIDERS: ATTENDING PHYSICIAN Internal Medicine Hematology & Oncology; FAMILY PHYSICIAN Family Medicine
DX: C25.0 Malignant neoplasm of head of pancreas (principal)
CPT/HCPCS: 36415; 80053; 85025

== ENCOUNTER → 2024-05-23 10:41 | Outpatient (REF) | payer MEDICARE, OTHER, SELFPAY ==
[2024-05-23 11:31] LABS: Hematocrit 36.6 % (39.0-52.0); Hemoglobin 12.2 g/dL (13.0-18.0); Mean Corp Hgb Conc. 33.3 g/dL (33.0-37.0); Mean Corpuscular Hgb 31.3 pg (27.0-31.0); Mean Corpuscular Volume 93.8 fL (80.0-94.0); Mean Platelet Volume 10.4 fL (7.4-10.4); Platelet Count 260 10^3/uL (130-400); Red Cell Dist. Width 14.2 % (11.5-14.5); White Blood Cell Count 15.9 10^3/uL (4.8-10.8)
[2024-05-23 11:56] LABS: ALT (SGPT) 47 U/L (0-50); AST (SGOT) 27 U/L (17-59); Albumin 3.5 g/dl (3.5-5.0); Alkaline Phosphatase 190 U/L (38-126); Blood Urea Nitrogen 15 mg/dl (9-20); Calcium 8.9 mg/dl (8.4-10.2); Carbon Dioxide 26 mmol/L (22-30); Chloride 103 mmol/L (98-107); Glucose 156 mg/dl (70-99); Sodium 137 mmol/L (135-145); Total Bilirubin 0.5 mg/dl (0.2-1.3); Total Protein 6.1 g/dl (6.3-8.2); eGFR > 60.00
[2024-05-23 12:02] LABS: % Basophils 0.3 % (0-2); % Eosinophils 1.5 % (0-6); % Immature Granulocytes 7.3 % (0-0.5); % Lymphocytes 9.7 % (20.5-51.1); % Monocytes 19.1 % (1.7-9.3); % Neutrophils 62.1 % (42.2-75.2); Absolute Eosinophils 0.2 10^3/uL (0-0.7); Absolute Immature Granulocytes 1.2 10^3/uL (0-0.05); Absolute Lymphocytes 1.5 10^3/uL (1.2-3.4); Absolute Neutrophils 9.9 10^3/uL (1.4-6.5); Nucleated Red Blood Cells % 0 % (-)
== END ==
LOC: REG 10:41
PROVIDERS: ATTENDING PHYSICIAN Internal Medicine Hematology & Oncology; FAMILY PHYSICIAN Family Medicine
DX: C25.0 Malignant neoplasm of head of pancreas (principal)
CPT/HCPCS: 36415; 80053; 85025

== ENCOUNTER → 2024-05-27 16:02 | Outpatient (REF) | payer MEDICARE, OTHER, SELFPAY ==
[2024-05-29 13:59] LABS: CA 19-9 894 U/mL (<=35)
== END ==
LOC: OIDL 16:02
PROVIDERS: ATTENDING PHYSICIAN Internal Medicine Hematology & Oncology
DX: C25.0 Malignant neoplasm of head of pancreas (principal)
CPT/HCPCS: 86301

== ENCOUNTER → 2024-06-02 08:46 | Outpatient (REF) | payer MEDICARE, OTHER, SELFPAY | LOC: RAD 08:46 | PROVIDERS: ATTENDING PHYSICIAN Internal Medicine Hematology & Oncology; FAMILY PHYSICIAN Family Medicine | DX: C25.0 Malignant neoplasm of head of pancreas (principal) | CPT/HCPCS: 71260; 74177; Q9967 ==

== ENCOUNTER → 2024-06-06 08:50 | Outpatient (REF) | payer MEDICARE, OTHER, SELFPAY ==
[2024-06-06 09:56] LABS: Hematocrit 35.5 % (39.0-52.0); Hemoglobin 11.4 g/dL (13.0-18.0); Mean Corp Hgb Conc. 32.1 g/dL (33.0-37.0); Mean Corpuscular Hgb 30.7 pg (27.0-31.0); Mean Corpuscular Volume 95.7 fL (80.0-94.0); Mean Platelet Volume 10.8 fL (7.4-10.4); Platelet Count 260 10^3/uL (130-400); Red Blood Cell Count 3.71 10^6/uL (4.70-6.10); Red Cell Dist. Width 14.6 % (11.5-14.5); White Blood Cell Count 16.1 10^3/uL (4.8-10.8)
[2024-06-06 10:38] LABS: ALT (SGPT) 30 U/L (0-50); AST (SGOT) 22 U/L (17-59); Albumin 3.3 g/dl (3.5-5.0); Alkaline Phosphatase 188 U/L (38-126); Blood Urea Nitrogen 10 mg/dl (9-20); Calcium 8.8 mg/dl (8.4-10.2); Carbon Dioxide 22 mmol/L (22-30); Chloride 105 mmol/L (98-107); Glucose 126 mg/dl (70-99); Potassium 4.3 mmol/L (3.5-5.1); Sodium 136 mmol/L (135-145); Total Bilirubin 0.5 mg/dl (0.2-1.3); Total Protein 5.9 g/dl (6.3-8.2); eGFR > 60.00
[2024-06-06 12:33] LABS: Absolute Neutrophils -Man Diff 10.7 10^3/uL (1.4-6.5); Band Neutrophils 28 % (0-3); Lymphocytes 8 % (20-51); Metamyelocytes 4 % (-); Monocytes 19 % (2-9); Myelocytes 2 % (-); Platelets Checked Yes; Segmented Neutrophils 39 % (42-75)
[2024-06-06 12:34] LABS: Normal RBC Morphology Yes; Total Cells Counted 100; Toxic Granulation 1+
== END ==
LOC: REG 08:50
PROVIDERS: ATTENDING PHYSICIAN Internal Medicine Hematology & Oncology; FAMILY PHYSICIAN Family Medicine
DX: C25.0 Malignant neoplasm of head of pancreas (principal)
CPT/HCPCS: 36415; 80053; 85025

== ENCOUNTER → 2024-06-13 10:20 | Outpatient (REF) | payer MEDICARE, OTHER, SELFPAY ==
[2024-06-13 10:53] LABS: Hematocrit 37.4 % (39.0-52.0); Hemoglobin 11.9 g/dL (13.0-18.0); Mean Corp Hgb Conc. 31.8 g/dL (33.0-37.0); Mean Corpuscular Hgb 30.4 pg (27.0-31.0); Mean Corpuscular Volume 95.4 fL (80.0-94.0); Mean Platelet Volume 10.6 fL (7.4-10.4); Platelet Count 199 10^3/uL (130-400); Red Blood Cell Count 3.92 10^6/uL (4.70-6.10); Red Cell Dist. Width 16.1 % (11.5-14.5)
[2024-06-13 11:10] LABS: % Basophils 0.3 % (0-2); % Eosinophils 0.5 % (0-6); % Immature Granulocytes 5.8 % (0-0.5); % Lymphocytes 5.8 % (20.5-51.1); % Monocytes 5.7 % (1.7-9.3); % Neutrophils 81.9 % (42.2-75.2); Absolute Basophils 0.1 10^3/uL (0-0.2); Absolute Eosinophils 0.2 10^3/uL (0-0.7); Absolute Immature Granulocytes 1.9 10^3/uL (0-0.05); Absolute Lymphocytes 1.9 10^3/uL (1.2-3.4); Absolute Monocytes 1.8 10^3/uL (0.1-0.6); Absolute Neutrophils 26.2 10^3/uL (1.4-6.5); Nucleated Red Blood Cells % 0.1 % (-)
[2024-06-13 12:05] LABS: ALT (SGPT) 33 U/L (0-50); AST (SGOT) 25 U/L (17-59); Albumin 3.7 g/dl (3.5-5.0); Alkaline Phosphatase 203 U/L (38-126); Blood Urea Nitrogen 19 mg/dl (9-20); Calcium 9.8 mg/dl (8.4-10.2); Carbon Dioxide 30 mmol/L (22-30); Chloride 99 mmol/L (98-107); Glucose 124 mg/dl (70-99); Potassium 5.3 mmol/L (3.5-5.1); Sodium 137 mmol/L (135-145); Total Bilirubin 0.6 mg/dl (0.2-1.3); Total Protein 6.5 g/dl (6.3-8.2); eGFR > 60.00
== END ==
LOC: REG 10:20
PROVIDERS: ATTENDING PHYSICIAN Internal Medicine Hematology & Oncology
DX: C25.0 Malignant neoplasm of head of pancreas (principal)
CPT/HCPCS: 36415; 80053; 85025

== ENCOUNTER → 2024-06-20 07:46 | Outpatient (REF) | payer MEDICARE, OTHER, SELFPAY | LOC: MRI 07:46 | PROVIDERS: ATTENDING PHYSICIAN Internal Medicine Hematology & Oncology; FAMILY PHYSICIAN Family Medicine | DX: C25.0 Malignant neoplasm of head of pancreas (principal) | CPT/HCPCS: 74183; A9575 ==

== ENCOUNTER → 2024-07-04 09:42 | Outpatient (REF) | payer MEDICARE, OTHER, SELFPAY ==
[2024-07-04 10:22] LABS: % Basophils 0.5 % (0-2); % Eosinophils 6.3 % (0-6); % Immature Granulocytes 1.2 % (0-0.5); % Lymphocytes 9.7 % (20.5-51.1); % Monocytes 9.4 % (1.7-9.3); % Neutrophils 72.9 % (42.2-75.2); Absolute Basophils 0.1 10^3/uL (0-0.2); Absolute Immature Granulocytes 0.2 10^3/uL (0-0.05); Absolute Lymphocytes 1.5 10^3/uL (1.2-3.4); Absolute Monocytes 1.4 10^3/uL (0.1-0.6); Absolute Neutrophils 11.1 10^3/uL (1.4-6.5); Hematocrit 36.4 % (39.0-52.0); Mean Corpuscular Hgb 31.7 pg (27.0-31.0); Mean Corpuscular Volume 96.3 fL (80.0-94.0); Mean Platelet Volume 11.2 fL (7.4-10.4); Nucleated Red Blood Cells % 0 % (-); Platelet Count 167 10^3/uL (130-400); Red Blood Cell Count 3.78 10^6/uL (4.70-6.10); Red Cell Dist. Width 19.3 % (11.5-14.5); White Blood Cell Count 15.3 10^3/uL (4.8-10.8)
[2024-07-04 10:48] LABS: ALT (SGPT) 38 U/L (0-50); AST (SGOT) 27 U/L (17-59); Albumin 3.9 g/dl (3.5-5.0); Alkaline Phosphatase 166 U/L (38-126); Blood Urea Nitrogen 20 mg/dl (9-20); Calcium 9.5 mg/dl (8.4-10.2); Carbon Dioxide 29 mmol/L (22-30); Chloride 105 mmol/L (98-107); Glucose 136 mg/dl (70-99); Potassium 4.9 mmol/L (3.5-5.1); Sodium 142 mmol/L (135-145); Total Bilirubin 0.4 mg/dl (0.2-1.3); Total Protein 6.9 g/dl (6.3-8.2); eGFR > 60.00
== END ==
LOC: REG 09:42
PROVIDERS: ATTENDING PHYSICIAN Specialist; FAMILY PHYSICIAN Family Medicine; REFERRING PHYSICIAN Internal Medicine Hematology & Oncology
DX: C25.0 Malignant neoplasm of head of pancreas (principal); R97.20 Elevated prostate specific antigen [PSA]
CPT/HCPCS: 36415; 80053; 84153; 85025

== ENCOUNTER → 2024-07-18 09:21 | Outpatient (REF) | payer MEDICARE, OTHER, SELFPAY ==
[2024-07-18 11:01] LABS: Absolute Neutrophils -Man Diff 18.6 10^3/uL (1.4-6.5); Atypical Lymphocytes 1 %; Band Neutrophils 9 % (0-3); Eosinophils 2 % (0-6); Hematocrit 33.8 % (39.0-52.0); Lymphocytes 6 % (20-51); Mean Corp Hgb Conc. 32.5 g/dL (33.0-37.0); Mean Corpuscular Hgb 31.5 pg (27.0-31.0); Mean Corpuscular Volume 96.8 fL (80.0-94.0); Mean Platelet Volume 10.8 fL (7.4-10.4); Metamyelocytes 2 % (-); Monocytes 3 % (2-9); Platelet Count 146 10^3/uL (130-400); Platelets Checked Yes; Red Blood Cell Count 3.49 10^6/uL (4.70-6.10); Red Cell Dist. Width 20.6 % (11.5-14.5); Segmented Neutrophils 77 % (42-75); White Blood Cell Count 21.7 10^3/uL (4.8-10.8)
[2024-07-18 11:02] LABS: Hypochromasia 1+; Normal RBC Morphology No; Polychromasia 1+; Stomatocytes 1+; Total Cells Counted 100
[2024-07-18 11:11] LABS: ALT (SGPT) 32 U/L (0-50); AST (SGOT) 27 U/L (17-59); Albumin 3.6 g/dl (3.5-5.0); Alkaline Phosphatase 183 U/L (38-126); Blood Urea Nitrogen 15 mg/dl (9-20); Calcium 9.4 mg/dl (8.4-10.2); Carbon Dioxide 29 mmol/L (22-30); Chloride 104 mmol/L (98-107); Glucose 137 mg/dl (70-99); Sodium 142 mmol/L (135-145); Total Bilirubin 0.4 mg/dl (0.2-1.3); Total Protein 6.4 g/dl (6.3-8.2); eGFR > 60.00
== END ==
LOC: REG 09:21
PROVIDERS: ATTENDING PHYSICIAN Internal Medicine Hematology & Oncology; FAMILY PHYSICIAN Family Medicine
DX: C25.0 Malignant neoplasm of head of pancreas (principal)
CPT/HCPCS: 36415; 80053; 85025

== ENCOUNTER → 2024-08-01 08:04 | Outpatient (REF) | payer MEDICARE, OTHER, SELFPAY ==
[2024-08-01 09:36] LABS: Hematocrit 34.6 % (39.0-52.0); Hemoglobin 11.3 g/dL (13.0-18.0); Mean Corp Hgb Conc. 32.7 g/dL (33.0-37.0); Mean Corpuscular Hgb 31.5 pg (27.0-31.0); Mean Corpuscular Volume 96.4 fL (80.0-94.0); Mean Platelet Volume 10.6 fL (7.4-10.4); Platelet Count 202 10^3/uL (130-400); Red Blood Cell Count 3.59 10^6/uL (4.70-6.10); Red Cell Dist. Width 20.7 % (11.5-14.5); White Blood Cell Count 30.5 10^3/uL (4.8-10.8)
[2024-08-01 09:46] LABS: ALT (SGPT) 26 U/L (0-50); AST (SGOT) 22 U/L (17-59); Albumin 3.6 g/dl (3.5-5.0); Alkaline Phosphatase 195 U/L (38-126); Blood Urea Nitrogen 13 mg/dl (9-20); Calcium 9.5 mg/dl (8.4-10.2); Carbon Dioxide 28 mmol/L (22-30); Chloride 104 mmol/L (98-107); Glucose 144 mg/dl (70-99); Sodium 142 mmol/L (135-145); Total Bilirubin 0.4 mg/dl (0.2-1.3); Total Protein 6.6 g/dl (6.3-8.2); eGFR > 60.00
[2024-08-01 10:23] LABS: Absolute Neutrophils -Man Diff 27.1 10^3/uL (1.4-6.5); Band Neutrophils 11 % (0-3); Eosinophils 1 % (0-6); Lymphocytes 3 % (20-51); Metamyelocytes 1 % (-); Monocytes 4 % (2-9); Myelocytes 2 % (-); Platelets Checked Yes; Segmented Neutrophils 78 % (42-75)
[2024-08-01 10:24] LABS: Normal RBC Morphology Yes; Total Cells Counted 100
== END ==
LOC: REG 08:04
PROVIDERS: ATTENDING PHYSICIAN Internal Medicine Hematology & Oncology; FAMILY PHYSICIAN Family Medicine
DX: C25.0 Malignant neoplasm of head of pancreas (principal)
CPT/HCPCS: 36415; 80053; 85025

== ENCOUNTER → 2024-08-05 14:46 | Outpatient (REF) | payer MEDICARE, OTHER, SELFPAY ==
[2024-08-05 11:22] LABS: LDH 237 U/L (120-246)
[2024-08-06 13:50] LABS: CA 19-9 145 U/mL (<=35)
== END ==
LOC: OIDL 14:46
PROVIDERS: ATTENDING PHYSICIAN Registered Nurse
DX: C25.0 Malignant neoplasm of head of pancreas (principal)
CPT/HCPCS: 83615; 86301

== ENCOUNTER → 2024-08-15 08:16 | Outpatient (REF) | payer MEDICARE, OTHER, SELFPAY ==
[2024-08-15 09:17] LABS: Hemoglobin 10.6 g/dL (13.0-18.0); Mean Corp Hgb Conc. 33.1 g/dL (33.0-37.0); Mean Corpuscular Hgb 31.7 pg (27.0-31.0); Mean Corpuscular Volume 95.8 fL (80.0-94.0); Mean Platelet Volume 10.4 fL (7.4-10.4); Platelet Count 239 10^3/uL (130-400); Red Blood Cell Count 3.34 10^6/uL (4.70-6.10); White Blood Cell Count 38.1 10^3/uL (4.8-10.8)
[2024-08-15 09:43] LABS: ALT (SGPT) 29 U/L (0-50); AST (SGOT) 26 U/L (17-59); Albumin 3.5 g/dl (3.5-5.0); Alkaline Phosphatase 197 U/L (38-126); Blood Urea Nitrogen 18 mg/dl (9-20); Calcium 9.5 mg/dl (8.4-10.2); Carbon Dioxide 28 mmol/L (22-30); Chloride 105 mmol/L (98-107); Glucose 93 mg/dl (70-99); Potassium 4.6 mmol/L (3.5-5.1); Sodium 142 mmol/L (135-145); Total Bilirubin 0.3 mg/dl (0.2-1.3); Total Protein 6.4 g/dl (6.3-8.2); eGFR > 60.00
[2024-08-15 11:54] LABS: Absolute Neutrophils -Man Diff 29.3 10^3/uL (1.4-6.5); Band Neutrophils 7 % (0-3); Eosinophils 1 % (0-6); Lymphocytes 8 % (20-51); Monocytes 7 % (2-9); Myelocytes 7 % (-); Segmented Neutrophils 70 % (42-75)
[2024-08-15 11:55] LABS: Normal RBC Morphology Yes; Platelets Checked Yes; Total Cells Counted 100
== END ==
LOC: REG 08:16
PROVIDERS: ATTENDING PHYSICIAN Internal Medicine Hematology & Oncology; FAMILY PHYSICIAN Family Medicine
DX: C25.0 Malignant neoplasm of head of pancreas (principal)
CPT/HCPCS: 36415; 80053; 85025

== ENCOUNTER → 2024-08-19 16:09 | Outpatient (REF) | payer MEDICARE, OTHER, SELFPAY ==
[2024-08-21 03:56] LABS: CA 19-9 127 U/mL (<=35)
== END ==
LOC: OIDL 16:09
PROVIDERS: ATTENDING PHYSICIAN Internal Medicine Hematology & Oncology
DX: C25.0 Malignant neoplasm of head of pancreas (principal)
CPT/HCPCS: 86301

== ENCOUNTER → 2024-08-26 08:28 | Outpatient (REF) | payer MEDICARE, OTHER, SELFPAY | LOC: MRI 08:28 | PROVIDERS: ATTENDING PHYSICIAN Internal Medicine Hematology & Oncology; FAMILY PHYSICIAN Family Medicine | DX: C25.0 Malignant neoplasm of head of pancreas (principal) | CPT/HCPCS: 74183; A9575 ==

== ENCOUNTER → 2024-08-29 10:32 | Outpatient (REF) | payer MEDICARE, OTHER, SELFPAY ==
[2024-08-29 10:55] LABS: % Basophils 0.3 % (0-2); % Eosinophils 2.8 % (0-6); % Immature Granulocytes 1.9 % (0-0.5); % Lymphocytes 8.7 % (20.5-51.1); % Monocytes 12.8 % (1.7-9.3); % Neutrophils 73.5 % (42.2-75.2); Absolute Basophils 0.1 10^3/uL (0-0.2); Absolute Eosinophils 0.5 10^3/uL (0-0.7); Absolute Immature Granulocytes 0.4 10^3/uL (0-0.05); Absolute Lymphocytes 1.6 10^3/uL (1.2-3.4); Absolute Monocytes 2.3 10^3/uL (0.1-0.6); Absolute Neutrophils 13.2 10^3/uL (1.4-6.5); Hematocrit 33.6 % (39.0-52.0); Hemoglobin 10.9 g/dL (13.0-18.0); Mean Corp Hgb Conc. 32.4 g/dL (33.0-37.0); Mean Corpuscular Hgb 32.3 pg (27.0-31.0); Mean Corpuscular Volume 99.7 fL (80.0-94.0); Mean Platelet Volume 10.4 fL (7.4-10.4); Nucleated Red Blood Cells % 0 % (-); Platelet Count 220 10^3/uL (130-400); Red Blood Cell Count 3.37 10^6/uL (4.70-6.10); Red Cell Dist. Width 19.7 % (11.5-14.5)
[2024-08-29 12:19] LABS: ALT (SGPT) 39 U/L (0-50); AST (SGOT) 26 U/L (17-59); Alkaline Phosphatase 118 U/L (38-126); Blood Urea Nitrogen 18 mg/dl (9-20); Calcium 9.4 mg/dl (8.4-10.2); Carbon Dioxide 28 mmol/L (22-30); Chloride 110 mmol/L (98-107); Glucose 120 mg/dl (70-99); Potassium 5.2 mmol/L (3.5-5.1); Sodium 143 mmol/L (135-145); Total Bilirubin 0.3 mg/dl (0.2-1.3); Total Protein 6.6 g/dl (6.3-8.2); eGFR > 60.00
== END ==
LOC: REG 10:32
PROVIDERS: ATTENDING PHYSICIAN Internal Medicine Hematology & Oncology; FAMILY PHYSICIAN Family Medicine
DX: C25.0 Malignant neoplasm of head of pancreas (principal)
CPT/HCPCS: 36415; 80053; 85025

== ENCOUNTER → 2024-09-12 09:50 | Outpatient (REF) | payer MEDICARE, OTHER, SELFPAY ==
[2024-09-12 10:36] LABS: % Basophils 0.5 % (0-2); % Eosinophils 2.4 % (0-6); % Immature Granulocytes 4.4 % (0-0.5); % Lymphocytes 7.9 % (20.5-51.1); % Monocytes 11.6 % (1.7-9.3); % Neutrophils 73.2 % (42.2-75.2); Absolute Basophils 0.1 10^3/uL (0-0.2); Absolute Eosinophils 0.6 10^3/uL (0-0.7); Absolute Lymphocytes 1.8 10^3/uL (1.2-3.4); Absolute Monocytes 2.7 10^3/uL (0.1-0.6); Absolute Neutrophils 17.1 10^3/uL (1.4-6.5); Hematocrit 35.1 % (39.0-52.0); Hemoglobin 11.5 g/dL (13.0-18.0); Mean Corp Hgb Conc. 32.8 g/dL (33.0-37.0); Mean Corpuscular Hgb 32.5 pg (27.0-31.0); Mean Corpuscular Volume 99.2 fL (80.0-94.0); Mean Platelet Volume 10.5 fL (7.4-10.4); Nucleated Red Blood Cells % 0.1 % (-); Platelet Count 231 10^3/uL (130-400); Red Blood Cell Count 3.54 10^6/uL (4.70-6.10); Red Cell Dist. Width 17.8 % (11.5-14.5); White Blood Cell Count 23.3 10^3/uL (4.8-10.8)
[2024-09-12 11:37] LABS: ALT (SGPT) 29 U/L (0-50); AST (SGOT) 21 U/L (17-59); Alkaline Phosphatase 119 U/L (38-126); Blood Urea Nitrogen 16 mg/dl (9-20); Calcium 9.4 mg/dl (8.4-10.2); Carbon Dioxide 27 mmol/L (22-30); Chloride 107 mmol/L (98-107); Glucose 134 mg/dl (70-99); Potassium 4.7 mmol/L (3.5-5.1); Sodium 142 mmol/L (135-145); Total Bilirubin 0.2 mg/dl (0.2-1.3); Total Protein 6.7 g/dl (6.3-8.2); eGFR > 60.00
== END ==
LOC: REG 09:50
PROVIDERS: ATTENDING PHYSICIAN Internal Medicine Hematology & Oncology; FAMILY PHYSICIAN Family Medicine
DX: C25.0 Malignant neoplasm of head of pancreas (principal)
CPT/HCPCS: 36415; 80053; 85025

== ENCOUNTER → 2024-09-16 11:25 | Outpatient (REF) | payer MEDICARE, OTHER, SELFPAY ==
[2024-09-16 11:52] LABS: LDH 221 U/L (120-246)
== END ==
LOC: OIDL 11:25
PROVIDERS: ATTENDING PHYSICIAN Internal Medicine Hematology & Oncology
DX: C25.0 Malignant neoplasm of head of pancreas (principal)
CPT/HCPCS: 83615

== ENCOUNTER → 2024-11-25 10:09 | Outpatient (REF) | payer MEDICARE, OTHER, SELFPAY | LOC: RAD 10:09 | PROVIDERS: ATTENDING PHYSICIAN Internal Medicine Hematology & Oncology; FAMILY PHYSICIAN Family Medicine | DX: C25.0 Malignant neoplasm of head of pancreas (principal) | CPT/HCPCS: 74177; Q9967 ==

== ENCOUNTER → 2024-11-28 10:07 | Outpatient (REF) | payer MEDICARE, OTHER, SELFPAY ==
[2024-11-28 11:15] LABS: Hematocrit 38.2 % (39.0-52.0); Hemoglobin 12.5 g/dL (13.0-18.0); Mean Corp Hgb Conc. 32.7 g/dL (33.0-37.0); Mean Corpuscular Volume 94.3 fL (80.0-94.0); Nucleated Red Blood Cells % 0 % (-); Platelet Count 201 10^3/uL (130-400); Red Cell Dist. Width 14.0 % (11.5-14.5)
[2024-11-28 12:00] LABS: ALT (SGPT) 32 U/L (0-50); AST (SGOT) 21 U/L (17-59); Albumin 4.0 g/dl (3.5-5.0); Alkaline Phosphatase 69 U/L (38-126); Blood Urea Nitrogen 19 mg/dl (9-20); Calcium 9.8 mg/dl (8.4-10.2); Carbon Dioxide 30 mmol/L (22-30); Chloride 106 mmol/L (98-107); Glucose 115 mg/dl (70-99); Potassium 5.5 mmol/L (3.5-5.1); Sodium 139 mmol/L (135-145); Total Protein 6.7 g/dl (6.3-8.2); eGFR > 60.00
[2024-11-30 13:21] LABS: CA 19-9 56 U/mL (<=35)
== END ==
LOC: REG 10:07
PROVIDERS: ATTENDING PHYSICIAN Internal Medicine Hematology & Oncology; FAMILY PHYSICIAN Family Medicine
DX: C25.0 Malignant neoplasm of head of pancreas (principal)
CPT/HCPCS: 36415; 80053; 85025; 86301

== ENCOUNTER → 2024-12-22 11:06 | Outpatient (REF) | payer MEDICARE, OTHER, SELFPAY ==
[2024-12-22 12:43] LABS: Hematocrit 36.2 % (39.0-52.0); Hemoglobin 12.2 g/dL (13.0-18.0); Mean Corp Hgb Conc. 33.7 g/dL (33.0-37.0); Mean Corpuscular Volume 89.4 fL (80.0-94.0); Nucleated Red Blood Cells % 0 % (-); Platelet Count 223 10^3/uL (130-400); Red Cell Dist. Width 14.2 % (11.5-14.5)
[2024-12-22 13:17] LABS: ALT (SGPT) 34 U/L (0-50); AST (SGOT) 26 U/L (17-59); Albumin 4.0 g/dl (3.5-5.0); Alkaline Phosphatase 68 U/L (38-126); Blood Urea Nitrogen 15 mg/dl (9-20); Calcium 9.1 mg/dl (8.4-10.2); Carbon Dioxide 25 mmol/L (22-30); Chloride 106 mmol/L (98-107); Glucose 114 mg/dl (70-99); Potassium 4.7 mmol/L (3.5-5.1); Sodium 137 mmol/L (135-145); Total Protein 6.8 g/dl (6.3-8.2); eGFR > 60.00
== END ==
LOC: REG 11:06
PROVIDERS: ATTENDING PHYSICIAN Internal Medicine Hematology & Oncology; FAMILY PHYSICIAN Family Medicine
DX: C25.0 Malignant neoplasm of head of pancreas (principal)
CPT/HCPCS: 36415; 80053; 85025

== ENCOUNTER → 2024-12-29 11:39 | Outpatient (REF) | payer MEDICARE, OTHER, SELFPAY ==
[2024-12-29 14:21] LABS: Hematocrit 36.7 % (39.0-52.0); Hemoglobin 12.2 g/dL (13.0-18.0); Mean Corp Hgb Conc. 33.2 g/dL (33.0-37.0); Mean Corpuscular Volume 93.6 fL (80.0-94.0); Nucleated Red Blood Cells % 0 % (-); Platelet Count 183 10^3/uL (130-400); Red Cell Dist. Width 14.3 % (11.5-14.5)
[2024-12-29 15:05] LABS: ALT (SGPT) 42 U/L (0-50); AST (SGOT) 28 U/L (17-59); Albumin 4.0 g/dl (3.5-5.0); Alkaline Phosphatase 64 U/L (38-126); Blood Urea Nitrogen 19 mg/dl (9-20); Calcium 9.0 mg/dl (8.4-10.2); Carbon Dioxide 29 mmol/L (22-30); Chloride 104 mmol/L (98-107); Glucose 124 mg/dl (70-99); Potassium 5.6 mmol/L (3.5-5.1); Sodium 137 mmol/L (135-145); Total Protein 6.7 g/dl (6.3-8.2)
[2024-12-29 15:06] LABS: eGFR > 60.00
== END ==
LOC: REG 11:39
PROVIDERS: ATTENDING PHYSICIAN Internal Medicine Hematology & Oncology; FAMILY PHYSICIAN Family Medicine
DX: C25.0 Malignant neoplasm of head of pancreas (principal)
CPT/HCPCS: 36415; 80053; 85025

== ENCOUNTER → 2025-01-05 11:26 | Outpatient (REF) | payer MEDICARE, OTHER, SELFPAY ==
[2025-01-05 12:23] LABS: Hematocrit 34.3 % (39.0-52.0); Hemoglobin 11.6 g/dL (13.0-18.0); Mean Corp Hgb Conc. 33.8 g/dL (33.0-37.0); Mean Corpuscular Volume 92.7 fL (80.0-94.0); Nucleated Red Blood Cells % 0 % (-); Platelet Count 127 10^3/uL (130-400); Red Cell Dist. Width 14.1 % (11.5-14.5)
[2025-01-05 12:54] LABS: ALT (SGPT) 54 U/L (0-50); AST (SGOT) 31 U/L (17-59); Albumin 4.2 g/dl (3.5-5.0); Alkaline Phosphatase 62 U/L (38-126); Blood Urea Nitrogen 18 mg/dl (9-20); Calcium 9.4 mg/dl (8.4-10.2); Carbon Dioxide 29 mmol/L (22-30); Chloride 104 mmol/L (98-107); Glucose 118 mg/dl (70-99); Potassium 5.3 mmol/L (3.5-5.1); Sodium 138 mmol/L (135-145); Total Protein 6.9 g/dl (6.3-8.2); eGFR > 60.00
== END ==
LOC: REG 11:26
PROVIDERS: ATTENDING PHYSICIAN Internal Medicine Hematology & Oncology; FAMILY PHYSICIAN Family Medicine
DX: C25.0 Malignant neoplasm of head of pancreas (principal)
CPT/HCPCS: 36415; 80053; 85025; 96374; 96375; 99284

== ENCOUNTER → 2025-01-19 10:55 | Outpatient (REF) | payer MEDICARE, OTHER, SELFPAY ==
[2025-01-19 11:38] LABS: Hematocrit 36.4 % (39.0-52.0); Hemoglobin 12.2 g/dL (13.0-18.0); Mean Corp Hgb Conc. 33.5 g/dL (33.0-37.0); Mean Corpuscular Volume 94.5 fL (80.0-94.0); Platelet Count 222 10^3/uL (130-400); Red Cell Dist. Width 16.4 % (11.5-14.5)
[2025-01-19 12:08] LABS: ALT (SGPT) 51 U/L (0-50); AST (SGOT) 30 U/L (17-59); Albumin 4.0 g/dl (3.5-5.0); Alkaline Phosphatase 67 U/L (38-126); Blood Urea Nitrogen 15 mg/dl (9-20); Calcium 9.1 mg/dl (8.4-10.2); Carbon Dioxide 29 mmol/L (22-30); Chloride 106 mmol/L (98-107); Glucose 138 mg/dl (70-99); Potassium 5.1 mmol/L (3.5-5.1); Sodium 139 mmol/L (135-145); Total Protein 6.8 g/dl (6.3-8.2); eGFR > 60.00
[2025-01-19 12:32] LABS: Absolute Neutrophils -Man Diff 2.7 10^3/uL (1.4-6.5); Normal RBC Morphology Yes; Platelets Checked Yes; Total Cells Counted 100
== END ==
LOC: REG 10:55
PROVIDERS: ATTENDING PHYSICIAN Internal Medicine Hematology & Oncology; FAMILY PHYSICIAN Family Medicine
DX: C25.0 Malignant neoplasm of head of pancreas (principal)
CPT/HCPCS: 36415; 80053; 85025

== ENCOUNTER → 2025-01-21 16:33 | Outpatient (REF) | payer MEDICARE, OTHER, SELFPAY ==
[2025-01-22 21:01] LABS: CA 19-9 103 U/mL (<=35)
== END ==
LOC: OIDL 16:33
PROVIDERS: ATTENDING PHYSICIAN Nurse Practitioner Adult Health
DX: C25.0 Malignant neoplasm of head of pancreas (principal)
CPT/HCPCS: 86301

== ENCOUNTER → 2025-01-27 08:42 | Outpatient (REF) | payer MEDICARE, OTHER, SELFPAY ==
[2025-01-27 10:16] LABS: Hematocrit 34.9 % (39.0-52.0); Hemoglobin 11.1 g/dL (13.0-18.0); Mean Corp Hgb Conc. 31.8 g/dL (33.0-37.0); Mean Corpuscular Volume 96.9 fL (80.0-94.0); Nucleated Red Blood Cells % 0 % (-); Platelet Count 361 10^3/uL (130-400); Red Cell Dist. Width 16.6 % (11.5-14.5)
[2025-01-27 11:23] LABS: ALT (SGPT) 50 U/L (0-50); AST (SGOT) 31 U/L (17-59); Albumin 3.9 g/dl (3.5-5.0); Alkaline Phosphatase 61 U/L (38-126); Blood Urea Nitrogen 17 mg/dl (9-20); Calcium 9.3 mg/dl (8.4-10.2); Carbon Dioxide 29 mmol/L (22-30); Chloride 107 mmol/L (98-107); Glucose 108 mg/dl (70-99); Potassium 5.4 mmol/L (3.5-5.1); Sodium 140 mmol/L (135-145); Total Protein 6.5 g/dl (6.3-8.2); eGFR > 60.00
== END ==
LOC: REG 08:42
PROVIDERS: ATTENDING PHYSICIAN Internal Medicine Hematology & Oncology; FAMILY PHYSICIAN Family Medicine
DX: C25.0 Malignant neoplasm of head of pancreas (principal)
CPT/HCPCS: 36415; 80053; 85025

== ENCOUNTER → 2025-01-29 15:10 | Outpatient (REF) | payer MEDICARE, OTHER, SELFPAY | LOC: RAD 15:10 | PROVIDERS: ATTENDING PHYSICIAN Internal Medicine Hematology & Oncology; FAMILY PHYSICIAN Family Medicine | DX: C25.0 Malignant neoplasm of head of pancreas (principal) | CPT/HCPCS: 71260; 74177; Q9967 ==

== ENCOUNTER → 2025-02-02 10:20 | Outpatient (REF) | payer MEDICARE, OTHER, SELFPAY ==
[2025-02-02 11:20] LABS: Hematocrit 33.1 % (39.0-52.0); Hemoglobin 10.6 g/dL (13.0-18.0); Mean Corp Hgb Conc. 32.0 g/dL (33.0-37.0); Mean Corpuscular Volume 98.2 fL (80.0-94.0); Nucleated Red Blood Cells % 0 % (-); Platelet Count 215 10^3/uL (130-400); Red Cell Dist. Width 16.6 % (11.5-14.5)
[2025-02-02 11:41] LABS: ALT (SGPT) 51 U/L (0-50); AST (SGOT) 26 U/L (17-59); Albumin 3.8 g/dl (3.5-5.0); Alkaline Phosphatase 56 U/L (38-126); Blood Urea Nitrogen 20 mg/dl (9-20); Calcium 9.0 mg/dl (8.4-10.2); Carbon Dioxide 30 mmol/L (22-30); Chloride 104 mmol/L (98-107); Glucose 131 mg/dl (70-99); Potassium 5.3 mmol/L (3.5-5.1); Sodium 137 mmol/L (135-145); Total Protein 6.3 g/dl (6.3-8.2); eGFR > 60.00
== END ==
LOC: REG 10:20
PROVIDERS: ATTENDING PHYSICIAN Internal Medicine Hematology & Oncology; FAMILY PHYSICIAN Family Medicine
DX: C25.0 Malignant neoplasm of head of pancreas (principal)
CPT/HCPCS: 36415; 80053; 85025

== ENCOUNTER → 2025-02-16 10:38 | Outpatient (REF) | payer MEDICARE, OTHER, SELFPAY ==
[2025-02-16 11:32] LABS: Hematocrit 33.1 % (39.0-52.0); Hemoglobin 10.6 g/dL (13.0-18.0); Mean Corp Hgb Conc. 32.0 g/dL (33.0-37.0); Mean Corpuscular Volume 96.2 fL (80.0-94.0); Platelet Count 243 10^3/uL (130-400); Red Cell Dist. Width 18.7 % (11.5-14.5)
[2025-02-16 11:45] LABS: ALT (SGPT) 40 U/L (0-50); AST (SGOT) 25 U/L (17-59); Albumin 3.8 g/dl (3.5-5.0); Alkaline Phosphatase 62 U/L (38-126); Blood Urea Nitrogen 17 mg/dl (9-20); Calcium 9.2 mg/dl (8.4-10.2); Carbon Dioxide 28 mmol/L (22-30); Chloride 107 mmol/L (98-107); Glucose 127 mg/dl (70-99); Potassium 5.0 mmol/L (3.5-5.1); Sodium 137 mmol/L (135-145); Total Protein 6.3 g/dl (6.3-8.2); eGFR > 60.00
[2025-02-16 13:12] LABS: Absolute Neutrophils -Man Diff 3.3 10^3/uL (1.4-6.5)
[2025-02-16 13:13] LABS: Normal RBC Morphology Yes; Platelets Checked Yes; Total Cells Counted 100
== END ==
LOC: REG 10:38
PROVIDERS: ATTENDING PHYSICIAN Internal Medicine Hematology & Oncology; FAMILY PHYSICIAN Family Medicine
DX: C25.0 Malignant neoplasm of head of pancreas (principal); R17 Unspecified jaundice
CPT/HCPCS: 36415; 80053; 85025

== ENCOUNTER → 2025-02-23 09:27 | Outpatient (REF) | payer MEDICARE, OTHER, SELFPAY ==
[2025-02-23 10:45] LABS: Hematocrit 33.2 % (39.0-52.0); Hemoglobin 11.1 g/dL (13.0-18.0); Mean Corp Hgb Conc. 33.4 g/dL (33.0-37.0); Mean Corpuscular Volume 97.4 fL (80.0-94.0); Nucleated Red Blood Cells % 0 % (-); Platelet Count 426 10^3/uL (130-400); Red Cell Dist. Width 18.0 % (11.5-14.5)
[2025-02-23 12:12] LABS: ALT (SGPT) 45 U/L (0-50); AST (SGOT) 30 U/L (17-59); Albumin 4.1 g/dl (3.5-5.0); Alkaline Phosphatase 62 U/L (38-126); Blood Urea Nitrogen 21 mg/dl (9-20); Calcium 9.6 mg/dl (8.4-10.2); Carbon Dioxide 30 mmol/L (22-30); Chloride 101 mmol/L (98-107); Glucose 127 mg/dl (70-99); Potassium 5.5 mmol/L (3.5-5.1); Sodium 135 mmol/L (135-145); Total Protein 6.8 g/dl (6.3-8.2); eGFR > 60.00
== END ==
LOC: REG 09:27
PROVIDERS: ATTENDING PHYSICIAN Internal Medicine Hematology & Oncology; FAMILY PHYSICIAN Family Medicine
DX: C25.0 Malignant neoplasm of head of pancreas (principal)
CPT/HCPCS: 36415; 80053; 85025

== ENCOUNTER → 2025-03-02 09:31 | Outpatient (REF) | payer MEDICARE, OTHER, SELFPAY ==
[2025-03-02 10:33] LABS: Hematocrit 34.4 % (39.0-52.0); Hemoglobin 11.1 g/dL (13.0-18.0); Mean Corp Hgb Conc. 32.3 g/dL (33.0-37.0); Mean Corpuscular Volume 99.1 fL (80.0-94.0); Nucleated Red Blood Cells % 0 % (-); Platelet Count 245 10^3/uL (130-400); Red Cell Dist. Width 17.8 % (11.5-14.5)
[2025-03-02 11:32] LABS: ALT (SGPT) 48 U/L (0-50); AST (SGOT) 29 U/L (17-59); Albumin 3.9 g/dl (3.5-5.0); Alkaline Phosphatase 72 U/L (38-126); Blood Urea Nitrogen 20 mg/dl (9-20); Calcium 9.5 mg/dl (8.4-10.2); Carbon Dioxide 31 mmol/L (22-30); Chloride 103 mmol/L (98-107); Glucose 138 mg/dl (70-99); Potassium 5.7 mmol/L (3.5-5.1); Sodium 137 mmol/L (135-145); Total Protein 6.5 g/dl (6.3-8.2); eGFR > 60.00
== END ==
LOC: REG 09:31
PROVIDERS: ATTENDING PHYSICIAN Internal Medicine Hematology & Oncology; FAMILY PHYSICIAN Family Medicine
DX: C25.0 Malignant neoplasm of head of pancreas (principal)
CPT/HCPCS: 36415; 80053; 85025

== ENCOUNTER → 2025-03-16 11:56 | Outpatient (REF) | payer MEDICARE, OTHER, SELFPAY ==
[2025-03-16 13:08] LABS: Hematocrit 35.7 % (39.0-52.0); Hemoglobin 11.3 g/dL (13.0-18.0); Mean Corp Hgb Conc. 31.7 g/dL (33.0-37.0); Mean Corpuscular Volume 100.3 fL (80.0-94.0); Nucleated Red Blood Cells % 0 % (-); Platelet Count 273 10^3/uL (130-400); Red Cell Dist. Width 18.1 % (11.5-14.5)
[2025-03-16 13:55] LABS: ALT (SGPT) 35 U/L (0-50); AST (SGOT) 24 U/L (17-59); Albumin 3.8 g/dl (3.5-5.0); Alkaline Phosphatase 85 U/L (38-126); Blood Urea Nitrogen 15 mg/dl (9-20); Calcium 8.9 mg/dl (8.4-10.2); Carbon Dioxide 30 mmol/L (22-30); Chloride 102 mmol/L (98-107); Glucose 110 mg/dl (70-99); Potassium 4.9 mmol/L (3.5-5.1); Sodium 136 mmol/L (135-145); Total Protein 6.4 g/dl (6.3-8.2); eGFR > 60.00
== END ==
LOC: REG 11:56
PROVIDERS: ATTENDING PHYSICIAN Internal Medicine Hematology & Oncology; FAMILY PHYSICIAN Family Medicine
DX: C25.0 Malignant neoplasm of head of pancreas (principal)
CPT/HCPCS: 36415; 80053; 85025

== ENCOUNTER → 2025-03-24 11:13 | Outpatient (REF) | payer MEDICARE, OTHER, SELFPAY ==
[2025-03-24 12:14] LABS: Hematocrit 33.0 % (39.0-52.0); Hemoglobin 10.8 g/dL (13.0-18.0); Mean Corp Hgb Conc. 32.7 g/dL (33.0-37.0); Mean Corpuscular Volume 97.3 fL (80.0-94.0); Nucleated Red Blood Cells % 0 % (-); Platelet Count 413 10^3/uL (130-400); Red Cell Dist. Width 16.9 % (11.5-14.5)
[2025-03-24 12:42] LABS: ALT (SGPT) 37 U/L (0-50); AST (SGOT) 26 U/L (17-59); Albumin 3.8 g/dl (3.5-5.0); Alkaline Phosphatase 83 U/L (38-126); Blood Urea Nitrogen 17 mg/dl (9-20); Calcium 9.2 mg/dl (8.4-10.2); Carbon Dioxide 26 mmol/L (22-30); Chloride 102 mmol/L (98-107); Glucose 121 mg/dl (70-99); Potassium 4.7 mmol/L (3.5-5.1); Sodium 135 mmol/L (135-145); Total Protein 6.4 g/dl (6.3-8.2); eGFR > 60.00
== END ==
LOC: REG 11:13
PROVIDERS: ATTENDING PHYSICIAN Internal Medicine Hematology & Oncology; FAMILY PHYSICIAN Family Medicine
DX: C25.0 Malignant neoplasm of head of pancreas (principal)
CPT/HCPCS: 36415; 80053; 85025

== ENCOUNTER → 2025-03-30 09:46 | Outpatient (REF) | payer MEDICARE, OTHER, SELFPAY ==
[2025-03-30 10:57] LABS: Hematocrit 32.3 % (39.0-52.0); Hemoglobin 10.6 g/dL (13.0-18.0); Mean Corp Hgb Conc. 32.8 g/dL (33.0-37.0); Mean Corpuscular Volume 97.6 fL (80.0-94.0); Nucleated Red Blood Cells % 0 % (-); Platelet Count 237 10^3/uL (130-400); Red Cell Dist. Width 16.7 % (11.5-14.5)
[2025-03-30 12:26] LABS: ALT (SGPT) 38 U/L (0-50); AST (SGOT) 25 U/L (17-59); Albumin 3.7 g/dl (3.5-5.0); Alkaline Phosphatase 80 U/L (38-126); Blood Urea Nitrogen 18 mg/dl (9-20); Calcium 9.2 mg/dl (8.4-10.2); Carbon Dioxide 29 mmol/L (22-30); Chloride 105 mmol/L (98-107); Glucose 128 mg/dl (70-99); Potassium 5.5 mmol/L (3.5-5.1); Sodium 137 mmol/L (135-145); Total Protein 6.4 g/dl (6.3-8.2); eGFR > 60.00
== END ==
LOC: REG 09:46
PROVIDERS: ATTENDING PHYSICIAN Internal Medicine Hematology & Oncology; FAMILY PHYSICIAN Family Medicine
DX: C25.0 Malignant neoplasm of head of pancreas (principal)
CPT/HCPCS: 36415; 80053; 85025